=== PATIENT | male | born 1970 | race Hispanic/Latino ===

== ENCOUNTER 2018-01-21 16:55 | Emergency (ER) | payer BC ==
[2018-01-21 17:10] LABS: APPEARANCE,URINE Clear (CLEAR); BILIRUBIN,URINE Negative (NEGATIVE); COLOR,URINE Yellow (YELLOW); GLUCOSE, URINE (UA) >=1000 mg/dL (NEGATIVE); KETONES,URINE Negative (NEGATIVE); LEUKOCYTE ESTERASE ,URINE Negative (NEGATIVE); NITRATE,URINE Negative (NEGATIVE); OCCULT BLOOD,URINE Moderate (NEGATIVE); PH,URINE 6.5 (5.0-8.0); PROTEIN,URINE >=1000 (NEGATIVE); UROBILINOGEN,URINE 0.2 mg/dL (0.2-1.0)
[2018-01-21] MEDS ORDERED: SODIUM CHLORIDE 0.9% 1000ML 1,000 ML IV ONE (17:12)
[2018-01-21] MEDS ORDERED: INSULIN HUMULIN R 100 UNIT/ML 3ML ONE (17:13)
[2018-01-21 17:24] LABS: BASOPHILS % (AUTO) 1.2 % (0.0-5.0); EOSINOPHILS % (AUTO) 1.4 % (0.0-8.0); HEMATOCRIT 38.7 % (42-54); LYMPHOCYTES % (AUTO) 18.9 % (21.0-51.0); MEAN CORPUSCULAR HEMOGLOBIN 29.8 pg (27.0-33.0); MEAN CORPUSCULAR HGB CONC 35.7 g/dL (32.0-36.0); MEAN CORPUSCULAR VOLUME 83.4 fL (79-99); MONOCYTES % (AUTO) 7.6 % (3.0-13.0); NEUTROPHILS % (AUTO) 70.9 % (40.0-77.0); PLATELET COUNT (AUTO) 372 K/uL (130-400); RED BLOOD CELL COUNT(AUTO) 4.64 MIL/uL (4.50-6.20); WHITE BLOOD COUNT (AUTO) 11.2 K/uL (4.8-10.8)
[2018-01-21 17:32] LABS: BACTERIA,URINE Few /HPF (None Seen); YEAST,URINE BUDDING Rare /HPF (None Seen)
[2018-01-21 17:33] LABS: SQUAMOUS EPITHELIAL CELL,UR Few /HPF (0-2)
[2018-01-21 17:44] LABS: ALBUMIN 2.1 g/dL (3.5-5.0); BILIRUBIN,TOTAL 0.2 mg/dL (0.2-1.0); TOTAL PROTEIN, SERUM 6.7 g/dL (6.0-8.3)
[2018-01-21 17:54] LABS: POTASSIUM 4.1 mmol/L (3.5-5.1)
== END 2018-01-21 18:55 | disposition home or self-care (01) ==
LOC: EDH 16:55
DX: E11.22 Type 2 diabetes mellitus with diabetic chronic kidney disease (principal); N18.9 Chronic kidney disease, unspecified; E11.65 Type 2 diabetes mellitus with hyperglycemia; Z98.890 Other specified postprocedural states
CPT/HCPCS: 36415; 80053; 81001; 82948; 85025; 96361; 96374; 99284; J1815; J7030

== ENCOUNTER 2018-03-22 19:19 | Inpatient (IN) | payer BC ==
[~2018-03-22] VITALS: Ht 172.7 cm; Wt 82.1 kg
[2018-03-22 19:53] LABS: BASOPHILS % (AUTO) 0.7 % (0.0-5.0); EOSINOPHILS % (AUTO) 0.7 % (0.0-8.0); HEMATOCRIT 42.7 % (42-54); LYMPHOCYTES % (AUTO) 17.3 % (21.0-51.0); MEAN CORPUSCULAR HEMOGLOBIN 27.7 pg (27.0-33.0); MEAN CORPUSCULAR HGB CONC 32.6 g/dL (32.0-36.0); MEAN CORPUSCULAR VOLUME 85.2 fL (79-99); MONOCYTES % (AUTO) 6.2 % (3.0-13.0); NEUTROPHILS % (AUTO) 75.1 % (40.0-77.0); PLATELET COUNT (AUTO) 381 K/uL (130-400); RED BLOOD CELL COUNT(AUTO) 5.01 MIL/uL (4.50-6.20); RED CELL DISTRIBUTION WIDTH 12.8 % (11.0-15.5); WHITE BLOOD COUNT (AUTO) 11.3 K/uL (4.8-10.8)
[2018-03-22 20:02] LABS: CREATININE 1.8 mg/dL (0.5-1.5); POTASSIUM 4.5 mmol/L (3.5-5.1)
[2018-03-22 20:06] LABS: BILIRUBIN,TOTAL 0.3 mg/dL (0.2-1.0); TOTAL PROTEIN, SERUM 6.7 g/dL (6.0-8.3)
[2018-03-22] MEDS ORDERED: ONDANSETRON HCL 4 MG/2 ML VIAL ONE (20:31)
[2018-03-22] MEDS ORDERED: MORPHINE SULFATE 2 MG/ML 1ML SYG ONE (20:58)
[2018-03-22] MEDS ORDERED: FAMOTIDINE/PF 20 MG/2 ML VIAL IV ONE (20:58)
[2018-03-22] MEDS ORDERED: CLONIDINE HCL 0.1 MG TABLET ONE (21:10)
[2018-03-22 21:19] LABS: APPEARANCE,URINE Clear (CLEAR); BILIRUBIN,URINE Negative (NEGATIVE); COLOR,URINE Yellow (YELLOW); GLUCOSE, URINE (UA) 500 mg/dL (NEGATIVE); KETONES,URINE Negative (NEGATIVE); LEUKOCYTE ESTERASE ,URINE Negative (NEGATIVE); NITRATE,URINE Negative (NEGATIVE); OCCULT BLOOD,URINE Small (NEGATIVE); PH,URINE 6.5 (5.0-8.0); PROTEIN,URINE >=1000 (NEGATIVE)
[2018-03-22 21:31] LABS: BACTERIA,URINE None Seen /HPF (None Seen); SQUAMOUS EPITHELIAL CELL,UR None Seen /HPF (0-2); WBC,URINE None Seen /HPF (0-1)
[2018-03-22 21:39] LABS: AMYLASE 52 U/L (25-115); LIPASE 151 U/L (114-286)
[2018-03-22 21:46] LABS: OCCULT BLOOD,GASTRIC FLUID POSITIVE (NEGATIVE)
[2018-03-22 23:17] VITALS: BP 117/76
[2018-03-22] MEDS ORDERED: INSU100I24 SQ (23:37)
[2018-03-22] MEDS ORDERED: METF-446 PO (23:37)
[2018-03-22] MEDS ORDERED: LISI10TA7 PO (23:37)
[2018-03-23] VITALS (20 sets, daily range): BP systolic 111–184; BP diastolic 68–104
[2018-03-23] MEDS ORDERED: LACTATED RINGERS 1000ML 1,000 ML IV ONE (01:06)
[2018-03-23] MEDS: LACTATED RINGERS 1000ML 1,000 ML IV SCH ×5 (03:15→21:40)
[2018-03-23] MEDS ORDERED: ONDANSETRON HCL MDV 20ML 2 MG/ML VIAL IVP PRN (03:15)
[2018-03-23 03:51] LABS: BASOPHILS % (AUTO) 1.5 % (0.0-5.0); EOSINOPHILS % (AUTO) 0.8 % (0.0-8.0); HEMATOCRIT 36.4 % (42-54); LYMPHOCYTES % (AUTO) 24.7 % (21.0-51.0); MEAN CORPUSCULAR HEMOGLOBIN 29.6 pg (27.0-33.0); MEAN CORPUSCULAR HGB CONC 34.9 g/dL (32.0-36.0); MEAN CORPUSCULAR VOLUME 84.8 fL (79-99); MONOCYTES % (AUTO) 8.6 % (3.0-13.0); NEUTROPHILS % (AUTO) 64.4 % (40.0-77.0); PLATELET COUNT (AUTO) 335 K/uL (130-400); RED BLOOD CELL COUNT(AUTO) 4.29 MIL/uL (4.50-6.20); RED CELL DISTRIBUTION WIDTH 13.2 % (11.0-15.5)
[2018-03-23 04:03] LABS: INR 0.94 (0.85-1.15); PARTIAL THROMBOPLASTIN TIME 32.1 SEC (26.3-35.5); PROTHROMBIN TIME 9.9 SEC (9.6-11.6)
[2018-03-23 04:19] LABS: ALBUMIN 1.5 g/dL (3.5-5.0); BILIRUBIN,TOTAL 0.3 mg/dL (0.2-1.0); CREATININE 1.9 mg/dL (0.5-1.5); POTASSIUM 4.2 mmol/L (3.5-5.1); TOTAL PROTEIN, SERUM 5.3 g/dL (6.0-8.3)
[2018-03-23] MEDS ORDERED: GLUCAGON 1MG KIT 1 MG ML IM PRN (07:00)
[2018-03-23] MEDS ORDERED: DEXTROSE 50%-WATER 50 ML DISP.SYRIN IV PRN (07:00)
[2018-03-23] MEDS: INSULIN HUMULIN R 100 UNIT/ML 3ML SQ SCH ×4 (07:30→21:00)
[2018-03-23] MEDS: INSULIN GLARGINE 100 UNITS/ML 10 ML VIAL SQ SCH (08:00)
[2018-03-23] MEDS: PANTOPRAZOLE 40 MG/VIAL IVP SCH (10:04)
[2018-03-23] MEDS ORDERED: PROPOFOL 10 MG/ML 20ML VIAL IV ONE ×2 (10:54→10:56)
[2018-03-23] MEDS: CLONIDINE HCL 0.1 MG TABLET PO PRN ×2 (15:31→23:52)
[2018-03-23] MEDS ORDERED: LISINOPRIL 10 MG TABLET PO SCH (21:00)
[2018-03-24 03:00] VITALS: BP 176/96
[2018-03-24] MEDS: CLONIDINE HCL 0.1 MG TABLET PO PRN (06:21)
[2018-03-24] MEDS: LACTATED RINGERS 1000ML 1,000 ML IV SCH (06:21)
[2018-03-24] MEDS: INSULIN HUMULIN R 100 UNIT/ML 3ML SQ SCH (06:22)
[2018-03-24 08:00] VITALS: BP 167/103
[2018-03-24] MEDS: INSULIN GLARGINE 100 UNITS/ML 10 ML VIAL SQ SCH (08:00)
[2018-03-24] MEDS ORDERED: ESOM40CA PO (10:04)
[2018-03-24] MEDS: PANTOPRAZOLE 40 MG/VIAL IVP SCH (10:31)
[2018-03-24 12:08] VITALS: BP 159/88
== END 2018-03-24 18:00 | disposition home or self-care (01) | DRG 369 ==
LOC: EDH 19:19 → EDHIP 22:16 → 3AH 23:25
PROVIDERS: ADMIT Hospitalist; ATTEND Hospitalist
PROC: 0DB68ZX Excision of Stomach, Via Natural or Artificial Opening Endoscopic, Diagnostic (ICD-10-PCS; principal; 2018-03-23)
DX: K22.6 Gastro-esophageal laceration-hemorrhage syndrome (principal); E44.1 Mild protein-calorie malnutrition; K29.71 Gastritis, unspecified, with bleeding; I10 Essential (primary) hypertension; K92.1 Melena; E11.9 Type 2 diabetes mellitus without complications; Z79.4 Long term (current) use of insulin; Z28.21 Immunization not carried out because of patient refusal; Z68.27 Body mass index [BMI] 27.0-27.9, adult
CPT/HCPCS: 36415; 80053; 81001; 82150; 82270; 82271; 82948; 83690; 84484; 85025; 85610; 85730; 86850; 86900; 86901; 88305; 93005; C9113; J2405; J2704; J3490; J7120

== ENCOUNTER 2018-09-04 08:42 | Inpatient (IN) | payer OTHER, BC | END 2018-09-18 13:35 | disposition home or self-care (01) | LOC: EDH 08:42 → 2AH 09-10 19:27 → 4CH 09-15 17:57 → EDHIP 08:43 | PROC: 02HV33Z Insertion of Infusion Device into Superior Vena Cava, Percutaneous Approach (ICD-10-PCS; principal; 2018-09-14 12:16) | PROC: 03180ZD Bypass Left Brachial Artery to Upper Arm Vein, Open Approach (ICD-10-PCS; 2018-09-14 12:16) | DX: I13.2 Hypertensive heart and chronic kidney disease with heart failure and with stage 5 chronic kidney disease, or end stage renal disease (principal); I50.43 Acute on chronic combined systolic (congestive) and diastolic (congestive) heart failure; N18.6 End stage renal disease; E44.0 Moderate protein-calorie malnutrition; N17.9 Acute kidney failure, unspecified; N04.9 Nephrotic syndrome with unspecified morphologic changes; E87.70 Fluid overload, unspecified; R07.89 Other chest pain; I12.9 Hypertensive chronic kidney disease with stage 1 through stage 4 chronic kidney disease, or unspecified chronic kidney disease; E11.51 Type 2 diabetes mellitus with diabetic peripheral angiopathy without gangrene; E11.22 Type 2 diabetes mellitus with diabetic chronic kidney disease; E11.21 Type 2 diabetes mellitus with diabetic nephropathy ==

== ENCOUNTER 2018-12-10 06:30 | Emergency (ER) | payer OTHER ==
[~2018-12-10 06:30] MED LIST: FURO-152 PO; INSU100I24 SQ; LOSA50TA64 PO
[2018-12-10 07:42] LABS: BASOPHILS % (AUTO) 0.8 % (0.0-5.0); EOSINOPHILS % (AUTO) 2.8 % (0.0-8.0); HEMATOCRIT 34.8 % (42-54); LYMPHOCYTES % (AUTO) 16.6 % (21.0-51.0); MEAN CORPUSCULAR HEMOGLOBIN 28.5 pg (27.0-33.0); MEAN CORPUSCULAR HGB CONC 33.3 g/dL (32.0-36.0); MEAN CORPUSCULAR VOLUME 85.7 fL (79-99); MONOCYTES % (AUTO) 11.3 % (3.0-13.0); NEUTROPHILS % (AUTO) 68.5 % (40.0-77.0); PLATELET COUNT (AUTO) 271 K/uL (130-400); RED BLOOD CELL COUNT(AUTO) 4.06 MIL/uL (4.50-6.20); RED CELL DISTRIBUTION WIDTH 15.6 % (11.0-15.5); WHITE BLOOD COUNT (AUTO) 7.8 K/uL (4.8-10.8)
[2018-12-10 07:52] LABS: CREATININE 4.3 mg/dL (0.5-1.5); POTASSIUM 4.5 mmol/L (3.5-5.1)
[2018-12-10 07:55] LABS: INR 0.98 (0.85-1.15); PROTHROMBIN TIME 10.3 SEC (9.6-11.6)
[2018-12-10] MEDS ORDERED: LIDOCAINE HCL 1% MDV 50ML VIAL ONE (08:25)
--- NOTE | 2018-12-10 09:19 | NUR ---
Patient prepped at bedside for Right permacath removal done by Dr Alvarez. Time out performed prior to start of procedure. Lidocaine 1% to catheter site. Permacath removed entirely. Patient tolerated well. Manual pressure held to site x 10 min. 4x4 and opsite dressing applied. No bleeding or hematoma noted. CXR performed. HOB elevated >45 degrees. No complaints from patient. Report given to primary nurse.
== END 2018-12-10 10:06 | disposition home or self-care (01) ==
LOC: EDH 06:30
DX: Z45.2 Encounter for adjustment and management of vascular access device (principal); I12.0 Hypertensive chronic kidney disease with stage 5 chronic kidney disease or end stage renal disease; E11.22 Type 2 diabetes mellitus with diabetic chronic kidney disease; N18.6 End stage renal disease; Z99.2 Dependence on renal dialysis
CPT/HCPCS: 36415; 36589; 71045; 80048; 85025; 85610; 85730; 99285; J3490

== ENCOUNTER 2019-01-03 20:10 | Emergency (ER) | payer MEDICARE, OTHER ==
[2019-01-03 21:14] LABS: APPEARANCE,URINE Clear (CLEAR); BILIRUBIN,URINE Negative (NEGATIVE); COLOR,URINE Yellow (YELLOW); GLUCOSE, URINE (UA) 500 mg/dL (NEGATIVE); KETONES,URINE Trace mg/dL (NEGATIVE); LEUKOCYTE ESTERASE ,URINE Negative (NEGATIVE); NITRATE,URINE Negative (NEGATIVE); OCCULT BLOOD,URINE Moderate (NEGATIVE); PH,URINE 7.5 (5.0-8.0); PROTEIN,URINE >=1000 mg/dL (NEGATIVE)
[2019-01-03] MEDS ORDERED: KETOROLAC TROMETHAMINE 30MG/ML ONE (21:26)
[2019-01-03] MEDS ORDERED: ONDANSETRON HCL 4 MG/2 ML VIAL ONE ×2 (21:26→22:02)
[2019-01-03 21:30] LABS: BASOPHILS % (AUTO) 0.5 % (0.0-5.0); EOSINOPHILS % (AUTO) 0.1 % (0.0-8.0); HEMATOCRIT 37.5 % (42-54); LYMPHOCYTES % (AUTO) 9.3 % (21.0-51.0); MEAN CORPUSCULAR HEMOGLOBIN 27.4 pg (27.0-33.0); MEAN CORPUSCULAR HGB CONC 32.6 g/dL (32.0-36.0); MONOCYTES % (AUTO) 4.3 % (3.0-13.0); NEUTROPHILS % (AUTO) 85.8 % (40.0-77.0); PLATELET COUNT (AUTO) 339 K/uL (130-400); RED BLOOD CELL COUNT(AUTO) 4.46 MIL/uL (4.50-6.20); RED CELL DISTRIBUTION WIDTH 14.3 % (11.0-15.5); WHITE BLOOD COUNT (AUTO) 12.1 K/uL (4.8-10.8)
[2019-01-03 21:41] LABS: CREATININE 5.3 mg/dL (0.5-1.5); POTASSIUM 4.8 mmol/L (3.5-5.1)
[2019-01-03 21:43] LABS: BACTERIA,URINE Rare /HPF (None Seen); WBC,URINE 0-1 /HPF (0-1)
[2019-01-03 21:44] LABS: SQUAMOUS EPITHELIAL CELL,UR Rare /HPF (0-2)
[2019-01-03 21:50] LABS: ALBUMIN 2.9 g/dL (3.5-5.0); BILIRUBIN,TOTAL 0.8 mg/dL (0.2-1.0); TOTAL PROTEIN, SERUM 8.2 g/dL (6.0-8.3)
[2019-01-03] MEDS ORDERED: SODIUM CHLORIDE 0.9% 500ML 500 ML IV ONE (22:35)
[2019-01-03] MEDS ORDERED: MORPHINE SULFATE 4 MG/1ML SYG ONE (22:35)
[2019-01-03] MEDS ORDERED: PROMETHAZINE HCL 25 MG/ML 1ML AMPULE IM ONE (22:44)
== END 2019-01-04 00:11 | disposition home or self-care (01) ==
LOC: EDH 20:10
DX: K80.80 Other cholelithiasis without obstruction (principal); I12.0 Hypertensive chronic kidney disease with stage 5 chronic kidney disease or end stage renal disease; E11.22 Type 2 diabetes mellitus with diabetic chronic kidney disease; N18.6 End stage renal disease; Z99.2 Dependence on renal dialysis
CPT/HCPCS: 36415; 71045; 74176; 76705; 80053; 81001; 82948; 83690; 84484; 85025; 96372; 96374; 96375; 96376; 99285; J1885; J2270; J2405 ×2; J2550; J7040

== ENCOUNTER 2019-02-18 06:26 | Day surgery (SDC) | payer MEDICARE ==
[2019-02-15 11:35] VITALS: BP 153/80
[2019-02-15 11:36] LABS: BASOPHILS % (AUTO) 0.5 % (0.0-5.0); EOSINOPHILS % (AUTO) 2.2 % (0.0-8.0); HEMATOCRIT 38.3 % (42-54); MEAN CORPUSCULAR HEMOGLOBIN 28.7 pg (27.0-33.0); MEAN CORPUSCULAR HGB CONC 32.9 g/dL (32.0-36.0); MEAN CORPUSCULAR VOLUME 87.3 fL (79-99); MONOCYTES % (AUTO) 8.9 % (3.0-13.0); NEUTROPHILS % (AUTO) 79.4 % (40.0-77.0); PLATELET COUNT (AUTO) 301 K/uL (130-400); RED BLOOD CELL COUNT(AUTO) 4.39 MIL/uL (4.50-6.20); RED CELL DISTRIBUTION WIDTH 15.4 % (11.0-15.5); WHITE BLOOD COUNT (AUTO) 11.1 K/uL (4.8-10.8)
[2019-02-15 11:48] LABS: INR 0.99 (0.85-1.15); PROTHROMBIN TIME 10.4 SEC (9.6-11.6)
[2019-02-15 11:56] LABS: ALBUMIN 2.8 g/dL (3.5-5.0); BILIRUBIN,DIRECT 0.4 mg/dL (0.0-0.3); BILIRUBIN,TOTAL 1.3 mg/dL (0.2-1.0); CREATININE 3.4 mg/dL (0.5-1.5); POTASSIUM 4.5 mmol/L (3.5-5.1); TOTAL PROTEIN, SERUM 7.9 g/dL (6.0-8.3)
--- NOTE | 2019-02-17 13:48 | NUR ---
labs paged Dr. Thomas to notify him of abnormal labs. waiting for call back
--- NOTE | 2019-02-17 13:52 | NUR ---
labs received call back from Dr. Thomas all abnormal labs reported to him, no further orders given, ok to proceed with planned sx
[2019-02-18] VITALS (18 sets, daily range): BP systolic 126–172; BP diastolic 71–93
[~2019-02-18] VITALS: Ht 170.2 cm; Wt 78.6 kg
[~2019-02-18 06:26] MED LIST changes: -FURO-152 PO; -INSU100I24 SQ; +LOSA100T58 PO; -LOSA50TA64 PO; +PANT40TA25 PO
--- NOTE | 2019-02-18 06:50 | NUR ---
POTENTIAL FOR INFECTION: ABDOMEN SHAVED PER ROSS MCMAHAN.
[2019-02-18] MEDS ORDERED: SODIUM CHLORIDE 0.9% 1000ML 1,000 ML IV ONE (07:10)
[2019-02-18] MEDS ORDERED: CITRIC ACID/SODIUM CITRATE 30 ML UDCUP ONE (07:27)
[2019-02-18] MEDS ORDERED: DEXAMETHASONE SOD PHOSPHATE 10MG/ML 1ML VIAL ONE (07:30)
[2019-02-18] MEDS ORDERED: SUCCINYLCHOLINE 200MG/10ML SYR ONE (07:30)
[2019-02-18] MEDS ORDERED: LIDOCAINE PF 2% 5ML ABBOJECT ONE (07:30)
[2019-02-18] MEDS ORDERED: ONDANSETRON HCL 4 MG/2 ML VIAL ONE (07:31)
[2019-02-18] MEDS ORDERED: ROCURONIUM 10MG/1ML SYR 10 MG/ML ML ONE (07:31)
[2019-02-18] MEDS ORDERED: GLYCOPYRROLATE 1 MG/5 ML SYRINGE ONE (07:31)
[2019-02-18] MEDS ORDERED: PROPOFOL 10 MG/ML 20ML VIAL IV ONE (07:31)
[2019-02-18] MEDS ORDERED: MIDAZOLAM HCL 1 MG/ML 2ML VIAL ONE (07:31)
[2019-02-18] MEDS ORDERED: NEOSTIGMINE 5MG/5ML SYR IV ONE (07:31)
[2019-02-18] MEDS ORDERED: FENTANYL CITRATE PF 50 MCG/1 ML 2ML VIAL ONE (07:32)
[2019-02-18] MEDS ORDERED: HEPARIN SODIUM 1000UNIT/ML 10ML VIAL ONE (07:45)
[2019-02-18] MEDS ORDERED: CITRIC ACID/SODIUM CITRATE 30 ML UDCUP PO ONE (08:00)
[2019-02-18] MEDS ORDERED: SCOPOLAMINE HYDROBROMIDE 1 EACH ADH..PATCH TD ONE (08:00)
[2019-02-18] MEDS ORDERED: SODIUM CHLORIDE 0.9% 1000ML 1,000 ML IV SCH (08:00)
[2019-02-18] MEDS ORDERED: LACTATED RINGERS 1000ML 1,000 ML IV SCH (08:00)
[2019-02-18] MEDS ORDERED: IPRATROPIUM/ALBUTEROL SULFATE 3 ML SOLUTION IH PRN (08:00)
[2019-02-18] MEDS ORDERED: FAMOTIDINE/PF 20 MG/2 ML VIAL IV ONE (08:00)
[2019-02-18] MEDS ORDERED: KETOROLAC TROMETHAMINE 30MG/ML IVP PRN (08:00)
[2019-02-18] MEDS ORDERED: METOCLOPRAMIDE 10 MG/2 ML VIAL IVP PRN (08:00)
[2019-02-18] MEDS ORDERED: MEPERIDINE-PF 50 MG/ML SYG IVP PRN (08:00)
[2019-02-18] MEDS ORDERED: MORPHINE SULFATE 5 MG/ML VIAL IVP PRN (08:00)
[2019-02-18] MEDS ORDERED: ONDANSETRON HCL 4 MG/2 ML VIAL IVP PRN (08:00)
[2019-02-18] MEDS ORDERED: MEPERIDINE-PF 25 MG/ML SYG ONE ×2 (08:50→09:00)
--- NOTE | 2019-02-18 09:30 | NUR ---
RECEIVE PT RECEIVED FROM PACU AWAKE, ORIENTED, BUT SLEEPY. STABLE. NOT IN ANY APPARENT DISTRESS. STATES HE ONLY HAS A LITTLE PAIN TO INCISION SITES, SCALE OF 3. ABDOMEN SOFT, BAND AID DRESSINGS X4 DRY AND INTACT, NO OOZING OR BLEEDING NOTED. CALL SANTILLAN WITHIN REACH, WILL CALL FOR TO COME IN TO ROOM.
--- NOTE | 2019-02-18 10:15 | NUR ---
DISCHARGE PT DISCHARGED VIA WHEELCHAIR WITH . FULLY AWAKE AND ALERT. PT STABLE. STATES HE FEELS BETTER. ABDOMEN REMAINS SOFT, BAND AID DRESSINGS DRY AND INTACT, NO OOZING NO BLEEDING NOTED. TOLERATED ORAL FLUIDS WELL. DISCHARGE INSTRUCTIONS GIVEN TO . VERBALIZED UNDERSTANDING.
== END 2019-02-18 10:15 | disposition home or self-care (01) ==
LOC: DAH 06:26
PROVIDERS: ATTEND Surgery
DX: K80.10 Calculus of gallbladder with chronic cholecystitis without obstruction (principal); I12.0 Hypertensive chronic kidney disease with stage 5 chronic kidney disease or end stage renal disease; E11.22 Type 2 diabetes mellitus with diabetic chronic kidney disease; N18.6 End stage renal disease; K21.9 Gastro-esophageal reflux disease without esophagitis; Z99.2 Dependence on renal dialysis; E78.5 Hyperlipidemia, unspecified; E66.9 Obesity, unspecified; Z79.4 Long term (current) use of insulin; Z88.8 Allergy status to other drugs, medicaments and biological substances; Z98.890 Other specified postprocedural states; Z79.899 Other long term (current) drug therapy; Z83.3 Family history of diabetes mellitus
CPT/HCPCS: 36415; 47562; 80048; 80076; 82948; 85025; 85610; 88304; A4450; A4600; A4930 ×2; C1769 ×4; J0330; J1100; J1644; J2001; J2175 ×2; J2250; J2405; J2704; J2710; J3010; J3490; J7030 ×2; J7120

== ENCOUNTER 2019-05-14 05:56 | Inpatient (IN) | payer MEDICARE ==
[~2019-05-14] VITALS: Ht 172.7 cm; Wt 76.4 kg
[2019-05-14 06:27] LABS: BASOPHILS % (AUTO) 1.1 % (0.0-5.0); EOSINOPHILS % (AUTO) 0.8 % (0.0-8.0); HEMATOCRIT 38.2 % (42-54); LYMPHOCYTES % (AUTO) 16.2 % (21.0-51.0); MEAN CORPUSCULAR HGB CONC 34.5 g/dL (32.0-36.0); MEAN CORPUSCULAR VOLUME 86.9 fL (79-99); MONOCYTES % (AUTO) 8.2 % (3.0-13.0); NEUTROPHILS % (AUTO) 73.7 % (40.0-77.0); NUCLEATED RED BLOOD CELLS 0.1 % (0.0-0.19); PLATELET COUNT (AUTO) 318 K/uL (130-400); RED CELL DISTRIBUTION WIDTH 13.7 % (11.0-15.5); WHITE BLOOD COUNT (AUTO) 9.9 K/uL (4.8-10.8)
[2019-05-14 06:38] LABS: CREATININE 6.7 mg/dL (0.5-1.5); POTASSIUM 3.9 mmol/L (3.5-5.1)
[2019-05-14 06:43] LABS: ALBUMIN 3.2 g/dL (3.5-5.0); BILIRUBIN,TOTAL 0.7 mg/dL (0.2-1.0); TOTAL PROTEIN, SERUM 8.2 g/dL (6.0-8.3)
[2019-05-14 06:43] LABS: APPEARANCE,URINE Clear (CLEAR); BILIRUBIN,URINE Negative (NEGATIVE); COLOR,URINE Yellow (YELLOW); GLUCOSE, URINE (UA) 500 mg/dL (NEGATIVE); KETONES,URINE Negative (NEGATIVE); LEUKOCYTE ESTERASE ,URINE Negative (NEGATIVE); NITRATE,URINE Negative (NEGATIVE); OCCULT BLOOD,URINE Moderate (NEGATIVE); PH,URINE 7.5 (5.0-8.0); PROTEIN,URINE >=1000 mg/dL (NEGATIVE); UROBILINOGEN,URINE 0.2 mg/dL (0.2-1.0)
[2019-05-14] MEDS ORDERED: MORPHINE SULFATE 4 MG/1ML SYG ONE (07:36)
[2019-05-14 07:59] LABS: BACTERIA,URINE Few /HPF (None Seen)
[2019-05-14] MEDS ORDERED: HYDROMORPHONE 1 MG/1 ML AMP ONE ×2 (08:59→13:25)
[2019-05-14] MEDS ORDERED: LIDOCAINE HCL 2% VISCOUS 30 ML, MAG HYDROX/AL HYDROX/SIMETH 30 ML, BELLADONNA-PHENOBARB... PO PRN ×3 (11:15)
[2019-05-14] MEDS ORDERED: ACETAMINOPHEN 325 MG TAB PO PRN ×2 (11:15)
[2019-05-14] MEDS ORDERED: VISCOUS PO PRN ×3 (11:30)
[2019-05-14] MEDS ORDERED: MAG HYDROX PO PRN ×3 (11:30)
[2019-05-14] MEDS ORDERED: SIMETH PO PRN ×3 (11:30)
[2019-05-14] MEDS ORDERED: LIDOCAINE HCL 2% PO PRN ×3 (11:30)
[2019-05-14] MEDS ORDERED: AL HYDROX PO PRN ×3 (11:30)
[2019-05-14] MEDS ORDERED: PROCHLORPERAZINE EDISYLATE 10 MG/2 ML VIAL IV PRN (11:30)
[2019-05-14] MEDS ORDERED: [UNRECOGNIZED DRUG - OTHER] PO PRN ×3 (11:30)
[2019-05-14] MEDS ORDERED: HYDROMORPHONE HCL 2 MG/ML VIAL IVP PRN (12:00)
[2019-05-14] MEDS ORDERED: ONDANSETRON HCL 4 MG/2 ML VIAL ONE (13:25)
[2019-05-14] MEDS ORDERED: SODIUM CHLORIDE 0.9% 100 ML IV ONE (15:52)
[2019-05-14 17:20] VITALS: BP 189/90
[2019-05-14] MEDS ORDERED: AMLO5TAB9 PO (17:37)
[2019-05-14] MEDS: ONDANSETRON HCL 4 MG/2 ML VIAL IV PRN ×2 (17:41→23:50)
[2019-05-14] MEDS: METOCLOPRAMIDE 5 MG TABLET PO SCH ×2 (17:41→21:00)
[2019-05-14] MEDS ORDERED: INSU100I24 SQ (19:52)
[2019-05-14 20:00] VITALS: BP 182/94
[2019-05-14] MEDS: HYDROMORPHONE 1 MG/1 ML AMP IVP PRN (21:58)
[2019-05-15] VITALS: BP 150/78
[2019-05-15] MEDS ORDERED: SODIUM CHLORIDE 0.9% 100 ML IV ONE (00:52)
[2019-05-15] MEDS: PANTOPRAZOLE SODIUM 80 MG in SODIUM CHLORIDE 0.9% 100 ML IV SCH ×4 (01:02→22:00)
[2019-05-15] MEDS: HEPARIN SODIUM 5000UNIT/ML 1ML VIAL SQ SCH ×3 (01:11→20:48)
[2019-05-15] MEDS: HYDROMORPHONE 1 MG/1 ML AMP IVP PRN ×4 (01:57→20:53)
[2019-05-15 04:00] VITALS: BP 149/71
[2019-05-15 05:48] LABS: ALBUMIN 2.7 g/dL (3.5-5.0); BILIRUBIN,DIRECT 0.2 mg/dL (0.0-0.3); BILIRUBIN,TOTAL 0.8 mg/dL (0.2-1.0); TOTAL PROTEIN, SERUM 7.2 g/dL (6.0-8.3)
[2019-05-15] MEDS: METOCLOPRAMIDE 5 MG TABLET PO SCH ×4 (07:30→20:59)
[2019-05-15 08:00] VITALS: BP 180/91
--- NOTE | 2019-05-15 08:00 | NUR ---
AM ASSESSMENT. UNHAPPY WITH CL. LIQUID DIET, WANTS SOLID FOODS.
--- NOTE | 2019-05-15 09:30 | NUR ---
IN TO SEE PT. WILL ENTER ORDERS.
[2019-05-15 12:00] VITALS: BP 178/95
[2019-05-15] MEDS: MORPHINE SULFATE 4 MG/1ML SYG IV PRN (12:12)
[2019-05-15] MEDS: ONDANSETRON HCL 4 MG/2 ML VIAL IV PRN ×2 (13:56→20:52)
[2019-05-15 16:00] VITALS: BP 150/75
--- NOTE | 2019-05-15 16:43 | NUR ---
SPOKE TO [facility] RE:GI CONSULT. DR. PALAFOX BEING FLIGHT TEST SHOP MECHANIC, PT. IS ESTABLISHED WITH DR. ZAMORA AND PREFERS TO SEE HIM,OK TO WAIT AND CONSULT NOAH IN AM. WILL ENDORSE TO INCOMING NURSE.
--- NOTE | 2019-05-15 16:51 | NUR ---
INITIAL: Met w pt and sister this afternoon to discuss dcp. Pt lives w spouse, is independent w ambulation and ADLs. Does not own any DMe. He attends [facility] for his HD needs. Pt mentions that his family provides transportation as he does not drive. Per pt he feels safe and comfortable to return home at al. CM to continue to follow and wait for Md recommendations. Addendum: 05/15/19 at 1653 by NATALIA HUMPHRIES Amended: Links added.
[2019-05-15 20:00] VITALS: BP 152/74
[2019-05-15] MEDS ORDERED: COMPOUND PO MISCELLANEOUS 1 EACH MISC MISC PRN (20:15)
[2019-05-15] MEDS: INSULIN GLARGINE 100 UNITS/ML 10 ML VIAL SQ SCH (20:49)
[2019-05-16] VITALS (7 sets, daily range): BP systolic 131–159; BP diastolic 68–85
[2019-05-16 04:37] LABS: HEMATOCRIT 33.5 % (42-54); MEAN CORPUSCULAR HEMOGLOBIN 29.6 pg (27.0-33.0); MEAN CORPUSCULAR HGB CONC 34.2 g/dL (32.0-36.0); MEAN CORPUSCULAR VOLUME 86.5 fL (79-99); NUCLEATED RED BLOOD CELLS 0.1 % (0.0-0.19); PLATELET COUNT (AUTO) 278 K/uL (130-400); RED BLOOD CELL COUNT(AUTO) 3.87 MIL/uL (4.50-6.20); RED CELL DISTRIBUTION WIDTH 13.5 % (11.0-15.5); WHITE BLOOD COUNT (AUTO) 8.1 K/uL (4.8-10.8)
[2019-05-16 04:45] LABS: BAND NEUTROPHILS % (MANUAL) 2 % (0-2); BASOPHILS % (MANUAL) 1 % (0-2); EOSINOPHILS % (MANUAL) 1 % (1-6); LYMPHOCYTES % (MANUAL) 13 % (22-44); MAN.DIFF COMMENT-IMPRESSION MANUAL DIFFERENTIAL; MONOCYTES % (MANUAL) 9 % (2-9); PLATELET MORPHOLOGY COMMENT ADEQUATE; SEGMENTED NEUTROPHILS % 74 % (40-70)
[2019-05-16 04:50] LABS: PHOSPHORUS 5.3 mg/dL (2.5-4.9); POTASSIUM 3.6 mmol/L (3.5-5.1)
[2019-05-16] MEDS: METOCLOPRAMIDE 5 MG TABLET PO SCH ×4 (06:05→16:28)
[2019-05-16] MEDS: INSULIN GLARGINE 100 UNITS/ML 10 ML VIAL SQ SCH (09:00)
[2019-05-16] MEDS: AMLODIPINE BESYLATE 5 MG TAB PO SCH (09:20)
[2019-05-16] MEDS: HEPARIN SODIUM 5000UNIT/ML 1ML VIAL SQ SCH (09:27)
[2019-05-16] MEDS: PANTOPRAZOLE SODIUM 80 MG in SODIUM CHLORIDE 0.9% 100 ML IV SCH ×2 (10:29→22:53)
[2019-05-16] MEDS: HYDROMORPHONE 1 MG/1 ML AMP IVP PRN ×2 (11:01→18:14)
[2019-05-16] MEDS: METOCLOPRAMIDE 10 MG/2 ML VIAL IVP SCH (21:05)
[2019-05-17] VITALS (16 sets, daily range): BP systolic 143–187; BP diastolic 61–90
[2019-05-17] MEDS: HYDROMORPHONE 1 MG/1 ML AMP IVP PRN (00:15)
[2019-05-17 04:50] LABS: MEAN CORPUSCULAR HEMOGLOBIN 29.8 pg (27.0-33.0); MEAN CORPUSCULAR HGB CONC 34.7 g/dL (32.0-36.0); MEAN CORPUSCULAR VOLUME 85.8 fL (79-99); PLATELET COUNT (AUTO) 286 K/uL (130-400); RED BLOOD CELL COUNT(AUTO) 3.61 MIL/uL (4.50-6.20); RED CELL DISTRIBUTION WIDTH 13.3 % (11.0-15.5); WHITE BLOOD COUNT (AUTO) 12.4 K/uL (4.8-10.8)
[2019-05-17 05:01] LABS: ALBUMIN 2.4 g/dL (3.5-5.0); CREATININE 7.1 mg/dL (0.5-1.5); PHOSPHORUS 5.5 mg/dL (2.5-4.9); POTASSIUM 3.7 mmol/L (3.5-5.1); TOTAL PROTEIN, SERUM 6.6 g/dL (6.0-8.3)
[2019-05-17 05:29] LABS: BASOPHILS % (MANUAL) 1 % (0-2); EOSINOPHILS % (MANUAL) 1 % (1-6); LYMPHOCYTES % (MANUAL) 12 % (22-44); MAN.DIFF COMMENT-IMPRESSION MANUAL DIFFERENTIAL; MONOCYTES % (MANUAL) 9 % (2-9); SEGMENTED NEUTROPHILS % 77 % (40-70)
--- NOTE | 2019-05-17 08:00 | NUR ---
AM SHIFT ASSESSMENT. NPO NOW FOR EGD TODAY. STATES HE IS COMFORTABLE AT THE MOMENT.
[2019-05-17] MEDS: AMLODIPINE BESYLATE 5 MG TAB PO SCH ×2 (09:00→16:06)
[2019-05-17] MEDS: INSULIN GLARGINE 100 UNITS/ML 10 ML VIAL SQ SCH (09:00)
[2019-05-17] MEDS: METOCLOPRAMIDE 10 MG/2 ML VIAL IVP SCH ×2 (09:54→20:41)
--- NOTE | 2019-05-17 09:55 | NUR ---
AM SCHEDULED INSULIN HELD THIS AM. LOW BS OF 68. AND IS ALSO NPO FOR OTHER PROCEDURE.
--- NOTE | 2019-05-17 13:55 | NUR ---
TO GI LAB NOW.
--- NOTE | 2019-05-17 15:37 | NUR ---
STARTED NOW ON HD TX,
[2019-05-17] MEDS: HYDRALAZINE HCL 20 MG/ML VIAL IV PRN (16:07)
--- NOTE | 2019-05-17 16:56 | NUR ---
PT.C/O OF PAIN TORT. FOREARM, RED AND SWOLLEN, TOP FRAME FITTER NOTIFIED AND ORDERS GIVEN AND ENTERED. PT. BEING DIALYZED NOW.
--- NOTE | 2019-05-17 18:37 | NUR ---
WARM COMPRESSES APPLIED TO RT. FOREARM.
--- NOTE | 2019-05-17 18:38 | NUR ---
90TX NOW COMPLETE, NO FLUID REMOVED. TOLERATED WELL, BP 190/90.
[2019-05-17] MEDS: MORPHINE SULFATE 4 MG/1ML SYG IV PRN (23:36)
[2019-05-18] MEDS ORDERED: ENOXAPARIN SODIUM 80 MG/0.8 ML SQ ONE (00:50)
[2019-05-18 03:55] VITALS: BP 169/94
[2019-05-18 05:04] LABS: BASOPHILS % (AUTO) 0.5 % (0.0-5.0); HEMATOCRIT 28.9 % (42-54); LYMPHOCYTES % (AUTO) 17.7 % (21.0-51.0); MEAN CORPUSCULAR HEMOGLOBIN 30.1 pg (27.0-33.0); MEAN CORPUSCULAR HGB CONC 34.7 g/dL (32.0-36.0); MEAN CORPUSCULAR VOLUME 86.9 fL (79-99); MONOCYTES % (AUTO) 14.6 % (3.0-13.0); NEUTROPHILS % (AUTO) 64.2 % (40.0-77.0); PLATELET COUNT (AUTO) 252 K/uL (130-400); RED BLOOD CELL COUNT(AUTO) 3.32 MIL/uL (4.50-6.20); RED CELL DISTRIBUTION WIDTH 13.5 % (11.0-15.5)
[2019-05-18] MEDS: MORPHINE SULFATE 4 MG/1ML SYG IV PRN ×2 (05:14→09:14)
[2019-05-18 05:21] LABS: CREATININE 5.5 mg/dL (0.5-1.5); POTASSIUM 3.6 mmol/L (3.5-5.1)
[2019-05-18 08:00] VITALS: BP 180/90
[2019-05-18] MEDS: INSULIN GLARGINE 100 UNITS/ML 10 ML VIAL SQ SCH (09:00)
[2019-05-18] MEDS ORDERED: ENOXAPARIN SODIUM 80 MG/0.8 ML SQ SCH (09:00)
[2019-05-18] MEDS: PANTOPRAZOLE SODIUM 80 MG in SODIUM CHLORIDE 0.9% 100 ML IV SCH (09:00)
[2019-05-18] MEDS: METOCLOPRAMIDE 10 MG/2 ML VIAL IVP SCH (09:12)
--- NOTE | 2019-05-18 10:50 | NUR ---
REC'D ORDERS FOR CARDIOVASCULAR CONSULT DUE TO RIGHT IJ THROMBUS; SCHEDULE READS DR HUMPHREY PHOTO MACHINE OPERATOR. SPOKE TO DR HUMPHREY, WHO STATED DR MENDOSA IS PHOTO MACHINE OPERATOR IN [facility] TODAY. NOTIFIED VIBHA, DR. MENDOSA'S NURSE, OF CONSULT. VIBHA ACKNOWLEDGED RECEIPT OF CONSULT.
--- NOTE | 2019-05-18 10:57 | NUR ---
CHART REVIEWED NOTE MADE OF RIJ THROMBUS. OLD RECORDS REVIEWED, NOTES MADE OF RIJ PERMACATH PLACED EARLIER THIS YEAR. NOTE MADE OF ECHO ON SAME ADMIT -35% EF/ SVC COLLAPSE ON INSPIRATION, READ BY DR. GUTIERREZ. NO OTHER CARDIOLOGY NOTES OR REFERRAL TO [facility] IN PATIENTS MEDICAL RECORD. REFERRAL PENDING TO [facility] FORM DR Malagon TO ASSESS THE THROMCUS
--- NOTE | 2019-05-18 11:45 | NUR ---
DR CRUZ REVIEWED FINDING OF THROMBUS WHEN ROUNDING STATES PROBABLY INCIDENTAL, PT HAD RIJ LINE; CAN DO VENOGRAM TO RULE OUT WILL DEFER TO [facility] RECOMMEND[facility]
[2019-05-18] MEDS: HYDRALAZINE HCL 20 MG/ML VIAL IV PRN (11:48)
[2019-05-18 13:31] VITALS: BP 150/66
[2019-05-18 16:00] VITALS: BP 164/74
--- NOTE | 2019-05-18 18:25 | NUR ---
Rec'd discharge orders from [facility]. Reviewed Dr. Tong's dictation which stated "consider repeat ultrasound in 1 month", and "if arm or facial swelling, consider anticoagulation." Per primary nurse, no swelling at present. [facility] voiced no need for anticoagulation at this time, but to instruct pt to follow up with PCP for repeat ultrasound.
--- NOTE | 2019-05-18 19:44 | NUR ---
PATIENT DISCHARGE PATIENT DISCHARGED, IV DISCONTINUED, CATHLON INTACT, BLEEDING CONTROLLED, PATIENT TOLERATED WITHOUT INCIDENT.
== END 2019-05-18 19:55 | disposition home or self-care (01) | DRG 368 ==
LOC: EDH 05:56 → OBSVTOIN 11:14 → EDHIP 11:14 → 3BH 17:20
PROVIDERS: ADMIT Family Medicine; ATTEND Family Medicine
PROC: 5A1D70Z Performance of Urinary Filtration, Intermittent, Less than 6 Hours Per Day (ICD-10-PCS; 2019-05-14)
PROC: 0DB98ZX Excision of Duodenum, Via Natural or Artificial Opening Endoscopic, Diagnostic (ICD-10-PCS; principal; 2019-05-17)
PROC: 0DB68ZX Excision of Stomach, Via Natural or Artificial Opening Endoscopic, Diagnostic (ICD-10-PCS; 2019-05-17)
PROC: 0DB38ZX Excision of Lower Esophagus, Via Natural or Artificial Opening Endoscopic, Diagnostic (ICD-10-PCS; 2019-05-17)
PROC: 5A1D70Z Performance of Urinary Filtration, Intermittent, Less than 6 Hours Per Day (ICD-10-PCS; 2019-05-17)
DX: K22.6 Gastro-esophageal laceration-hemorrhage syndrome (principal); N18.6 End stage renal disease; I12.0 Hypertensive chronic kidney disease with stage 5 chronic kidney disease or end stage renal disease; C18.9 Malignant neoplasm of colon, unspecified; I82.C11 Acute embolism and thrombosis of right internal jugular vein; K59.00 Constipation, unspecified; K21.0 Gastro-esophageal reflux disease with esophagitis; F02.80 Dementia in other diseases classified elsewhere, unspecified severity, without behavioral disturbance, psychotic disturbance, mood disturbance, and anxiety; E11.22 Type 2 diabetes mellitus with diabetic chronic kidney disease; G30.9 Alzheimer's disease, unspecified; E11.43 Type 2 diabetes mellitus with diabetic autonomic (poly)neuropathy; K31.84 Gastroparesis; B96.81 Helicobacter pylori [H. pylori] as the cause of diseases classified elsewhere; D64.9 Anemia, unspecified; E11.21 Type 2 diabetes mellitus with diabetic nephropathy; E66.9 Obesity, unspecified; Z68.25 Body mass index [BMI] 25.0-25.9, adult; Z99.2 Dependence on renal dialysis; Z79.01 Long term (current) use of anticoagulants; Z90.49 Acquired absence of other specified parts of digestive tract; K29.00 Acute gastritis without bleeding
CPT/HCPCS: 36415; 43239; 74176; 80048; 80053; 80076; 81001; 82948; 83690; 84100; 84484; 85025; 86677; 88305; 90935; 93005; 93931; 93971; A4606; C9113; G0378; J0360; J0780; J1170; J1644; J1650; J2270; J2405; J2765

== ENCOUNTER 2019-05-24 07:03 | Emergency (ER) | payer MEDICARE ==
[~2019-05-24 07:03] MED LIST changes: +AMLO5TAB9 PO; +INSU100I24 SQ; -LOSA100T58 PO; -PANT40TA25 PO
[2019-05-24] MEDS ORDERED: DiphenhydrAMINE HCL 50 MG/ML VIAL ONE (07:42)
[2019-05-24] MEDS ORDERED: PROCHLORPERAZINE EDISYLATE 10 MG/2 ML VIAL ONE (07:42)
== END 2019-05-24 08:37 | disposition home or self-care (01) ==
LOC: EDH 07:03
DX: R10.30 Lower abdominal pain, unspecified (principal); R11.2 Nausea with vomiting, unspecified; I12.0 Hypertensive chronic kidney disease with stage 5 chronic kidney disease or end stage renal disease; E11.22 Type 2 diabetes mellitus with diabetic chronic kidney disease; N18.6 End stage renal disease; Z99.2 Dependence on renal dialysis; Z79.4 Long term (current) use of insulin; Z90.49 Acquired absence of other specified parts of digestive tract; Z98.890 Other specified postprocedural states
CPT/HCPCS: 96372 ×2; 99284; J0780; J1200

== ENCOUNTER 2019-05-28 11:17 | Emergency (ER) | payer MEDICARE ==
[2019-05-28 11:45] LABS: BASOPHILS % (AUTO) 0.3 % (0.0-5.0); EOSINOPHILS % (AUTO) 1.3 % (0.0-8.0); HEMATOCRIT 35.6 % (42-54); LYMPHOCYTES % (AUTO) 6.5 % (21.0-51.0); MEAN CORPUSCULAR HEMOGLOBIN 28.7 pg (27.0-33.0); MEAN CORPUSCULAR HGB CONC 33.4 g/dL (32.0-36.0); MEAN CORPUSCULAR VOLUME 86.1 fL (79-99); MONOCYTES % (AUTO) 5.2 % (3.0-13.0); NEUTROPHILS % (AUTO) 86.7 % (40.0-77.0); PLATELET COUNT (AUTO) 361 K/uL (130-400); RED BLOOD CELL COUNT(AUTO) 4.14 MIL/uL (4.50-6.20); RED CELL DISTRIBUTION WIDTH 13.1 % (11.0-15.5); WHITE BLOOD COUNT (AUTO) 12.7 K/uL (4.8-10.8)
[2019-05-28 11:57] LABS: CREATININE 5.8 mg/dL (0.5-1.5); POTASSIUM 4.3 mmol/L (3.5-5.1)
[2019-05-28 11:59] LABS: INR 1.01 (0.85-1.15); PROTHROMBIN TIME 10.6 SEC (9.6-11.6)
[2019-05-28 12:02] LABS: BILIRUBIN,TOTAL 0.6 mg/dL (0.2-1.0); TOTAL PROTEIN, SERUM 8.1 g/dL (6.0-8.3)
== END 2019-05-28 15:42 | disposition home or self-care (01) ==
LOC: EDH 11:17
DX: H81.399 Other peripheral vertigo, unspecified ear (principal); K29.70 Gastritis, unspecified, without bleeding; K92.0 Hematemesis; E11.22 Type 2 diabetes mellitus with diabetic chronic kidney disease; I12.0 Hypertensive chronic kidney disease with stage 5 chronic kidney disease or end stage renal disease; N18.6 End stage renal disease; Z99.2 Dependence on renal dialysis; Z79.4 Long term (current) use of insulin; Z90.49 Acquired absence of other specified parts of digestive tract
CPT/HCPCS: 36415; 70450; 80053; 82270; 83690; 85025; 85610; 85730; 86850; 86900; 86901

== ENCOUNTER 2020-01-11 23:51 | Emergency (ER) | payer MEDICARE ==
[~2020-01-11 23:51] MED LIST changes: +AMLO-257 PO; -AMLO5TAB9 PO
[2020-01-11] MEDS ORDERED: PANTOPRAZOLE 40 MG/VIAL IVP ONE (23:52)
[2020-01-11] MEDS ORDERED: PROMETHAZINE HCL 25 MG/ML 1ML AMPULE IM ONE (23:52)
[2020-01-12] MEDS ORDERED: ONDANSETRON HCL 4 MG/2 ML VIAL ONE (00:24)
[2020-01-12] MEDS ORDERED: SODIUM CHLORIDE 0.9% 250 ML IV ONE (00:25)
[2020-01-12] MEDS ORDERED: MORPHINE SULFATE 4 MG/1ML SYG ONE (00:55)
[2020-01-12 01:22] LABS: BASOPHILS % (AUTO) 0.4 % (0.0-5.0); EOSINOPHILS % (AUTO) 1.6 % (0.0-8.0); HEMATOCRIT 37.7 % (42-54); LYMPHOCYTES % (AUTO) 9.5 % (21.0-51.0); MEAN CORPUSCULAR HGB CONC 32.4 g/dL (32.0-36.0); MEAN CORPUSCULAR VOLUME 89.5 fL (79-99); MONOCYTES % (AUTO) 9.2 % (3.0-13.0); NEUTROPHILS % (AUTO) 78.8 % (40.0-77.0); PLATELET COUNT (AUTO) 311 K/uL (130-400); RED BLOOD CELL COUNT(AUTO) 4.21 MIL/uL (4.50-6.20); RED CELL DISTRIBUTION WIDTH 14.8 % (11.0-15.5)
[2020-01-12 01:41] LABS: INR 0.97 (0.85-1.15); PARTIAL THROMBOPLASTIN TIME 30.8 SEC (26.3-35.5); PROTHROMBIN TIME 10.5 SEC (9.6-11.6)
[2020-01-12 01:42] LABS: ALBUMIN 3.8 g/dL (3.5-5.0); BILIRUBIN,DIRECT 0.2 mg/dL (0.0-0.3); BILIRUBIN,TOTAL 0.9 mg/dL (0.2-1.0); POTASSIUM 4.4 mmol/L (3.5-5.1); TOTAL PROTEIN, SERUM 8.6 g/dL (6.0-8.3)
[2020-01-12] MEDS ORDERED: MAG HYDROX/AL HYDROX/SIMETH ES 30 ML SUSP UDCUP ONE (04:31)
[2020-01-12] MEDS ORDERED: LIDOCAINE HCL 2% VISCOUS 15 ML UDCUP ONE (04:31)
[2020-01-12 04:37] LABS: BASOPHILS % (AUTO) 0.4 % (0.0-5.0); EOSINOPHILS % (AUTO) 0.6 % (0.0-8.0); HEMATOCRIT 35.2 % (42-54); LYMPHOCYTES % (AUTO) 7.6 % (21.0-51.0); MEAN CORPUSCULAR HEMOGLOBIN 29.2 pg (27.0-33.0); MEAN CORPUSCULAR HGB CONC 32.7 g/dL (32.0-36.0); MEAN CORPUSCULAR VOLUME 89.3 fL (79-99); MONOCYTES % (AUTO) 8.6 % (3.0-13.0); NEUTROPHILS % (AUTO) 82.5 % (40.0-77.0); PLATELET COUNT (AUTO) 254 K/uL (130-400); RED BLOOD CELL COUNT(AUTO) 3.94 MIL/uL (4.50-6.20); RED CELL DISTRIBUTION WIDTH 14.5 % (11.0-15.5); WHITE BLOOD COUNT (AUTO) 10.8 K/uL (4.8-10.8)
[2020-01-12] MEDS ORDERED: HALOPERIDOL LACTATE 5 MG/ML VIAL ONE (05:33)
== END 2020-01-12 06:12 | disposition home or self-care (01) ==
LOC: EDH 23:51
DX: K29.00 Acute gastritis without bleeding (principal); K92.0 Hematemesis; I12.0 Hypertensive chronic kidney disease with stage 5 chronic kidney disease or end stage renal disease; E11.22 Type 2 diabetes mellitus with diabetic chronic kidney disease; N18.6 End stage renal disease; Z99.2 Dependence on renal dialysis; Z90.49 Acquired absence of other specified parts of digestive tract; Z88.8 Allergy status to other drugs, medicaments and biological substances
CPT/HCPCS: 36415; 74176; 80048; 80076; 82550; 83690; 84484; 85025 ×2; 85610; 85730; 93005; 96374; 96375; 99285; C9113; J1630; J2270; J2405; J2550; J7050

== ENCOUNTER 2020-09-22 16:18 | Inpatient (IN) | payer MEDICARE ==
[~2020-09-22] VITALS: Ht 172.7 cm; Wt 79.7 kg
[2020-09-22] MEDS ORDERED: ONDANSETRON 4MG INJ ONE ×2 (16:40→22:25)
[2020-09-22] MEDS ORDERED: MORPHINE 4 MG SYG ONE (16:41)
[2020-09-22 16:59] LABS: BASOPHILS % (AUTO) 0.6 % (0.0-5.0); EOSINOPHILS % (AUTO) 1.6 % (0.0-8.0); HEMATOCRIT 33.8 % (42-54); LYMPHOCYTES % (AUTO) 5.5 % (21.0-51.0); MEAN CORPUSCULAR HEMOGLOBIN 29.3 pg (27.0-33.0); MEAN CORPUSCULAR HGB CONC 32.5 g/dL (32.0-36.0); MEAN CORPUSCULAR VOLUME 90.1 fL (79-99); MONOCYTES % (AUTO) 13.8 % (3.0-13.0); NEUTROPHILS % (AUTO) 78.3 % (40.0-77.0); PLATELET COUNT (AUTO) 274 K/uL (130-400); RED BLOOD CELL COUNT(AUTO) 3.75 MIL/uL (4.50-6.20); RED CELL DISTRIBUTION WIDTH 16.6 % (11.0-15.5); WHITE BLOOD COUNT (AUTO) 8.7 K/uL (4.8-10.8)
[2020-09-22 17:08] LABS: CREATININE 5.1 mg/dL (0.5-1.5); POTASSIUM 4.4 mmol/L (3.5-5.1)
[2020-09-22 17:09] LABS: INR 1.27 (0.85-1.15); PROTHROMBIN TIME 13.5 SEC (9.6-11.6)
[2020-09-22 17:18] LABS: ALBUMIN 3.2 g/dL (3.5-5.0); BILIRUBIN,TOTAL 1.4 mg/dL (0.2-1.0); TOTAL PROTEIN, SERUM 8.1 g/dL (6.0-8.3)
[2020-09-22 17:24] LABS: B-TYPE NATRIURETIC PEPTIDE 4400 pg/mL (0-100)
[2020-09-22 17:47] LABS: D-DIMER > 10000 ng/mL (0-500)
[2020-09-22] MEDS ORDERED: FENTANYL CITRATE PF 50 MCG/1 ML 2ML VIAL ONE (18:20)
[2020-09-22] MEDS ORDERED: CEFTRIAXONE 1G VIAL ONE (18:22)
[2020-09-22] MEDS ORDERED: ALBUTEROL 0.083% 2.5 MG/3 ML INH IH PRN (19:45)
[2020-09-22] MEDS ORDERED: MAG/ALUM/SIMETH 30 ML UDCUP PO PRN (19:45)
[2020-09-22] MEDS ORDERED: DIPHENHYDRAMINE HCL 25 MG CAPSULE PO PRN (19:45)
[2020-09-22] MEDS ORDERED: NITROGLYCERIN 0.4 MG SL TAB SL PRN (19:45)
[2020-09-22] MEDS ORDERED: GUAIFENESIN-DM 200/20 MG 10 ML PO PRN (19:45)
[2020-09-22] MEDS: CEFTRIAXONE 1G VIAL IV SCH (19:45)
[2020-09-22] MEDS ORDERED: HYDROMORPHONE 1 MG INJ ONE (20:01)
[2020-09-22] MEDS: HEPARIN 5,000 UNIT VIAL SQ SCH (21:00)
[2020-09-22] MEDS ORDERED: FAMOTIDINE 20MG VIAL IV ONE (22:17)
[2020-09-22] MEDS ORDERED: HEPARIN 5,000 UNIT VIAL ONE (22:17)
[2020-09-22] MEDS ORDERED: DiphenhydrAMINE HCL 50 MG/ML VIAL ONE (22:25)
[2020-09-22 23:15] VITALS: BP 145/84
[2020-09-22] MEDS: ONDANSETRON 4MG INJ IV PRN (23:46)
[2020-09-23] MEDS ORDERED: PHOSLOC PO (00:57)
[2020-09-23] MEDS: HYDROMORPHONE 1 MG INJ IVP PRN ×4 (02:40→20:25)
[2020-09-23 04:15] VITALS: BP 130/71
[2020-09-23] MEDS: ONDANSETRON 4MG INJ IV PRN ×2 (06:33→20:24)
[2020-09-23 07:00] VITALS: BP 141/78
[2020-09-23 07:34] LABS: APPEARANCE,URINE Clear (CLEAR); BILIRUBIN,URINE Negative (NEGATIVE); COLOR,URINE Yellow (YELLOW); GLUCOSE, URINE (UA) TRACE mg/dL (NEGATIVE); KETONES,URINE Negative (NEGATIVE); LEUKOCYTE ESTERASE ,URINE Negative (NEGATIVE); NITRATE,URINE Negative (NEGATIVE); OCCULT BLOOD,URINE Trace (NEGATIVE); PH,URINE 8.5 (5.0-8.0); PROTEIN,URINE >=1000 mg/dL (NEGATIVE)
[2020-09-23] MEDS: FAMOTIDINE 20MG VIAL IV SCH (07:51)
[2020-09-23] MEDS: HEPARIN 5,000 UNIT VIAL SQ SCH ×2 (07:53→19:50)
[2020-09-23 08:01] LABS: BACTERIA,URINE Few /HPF (None Seen); RBC,URINE 0-1 /HPF (0-1); WBC,URINE 0-1 /HPF (0-1)
[2020-09-23 08:02] LABS: HYALINE CASTS, URINE 0-1 /LPF (0-1 /LPF)
[2020-09-23 08:19] LABS: BASOPHILS % (AUTO) 0.5 % (0.0-5.0); EOSINOPHILS % (AUTO) 2.1 % (0.0-8.0); LYMPHOCYTES % (AUTO) 4.5 % (21.0-51.0); MEAN CORPUSCULAR HEMOGLOBIN 28.8 pg (27.0-33.0); MEAN CORPUSCULAR HGB CONC 30.6 g/dL (32.0-36.0); MEAN CORPUSCULAR VOLUME 94.2 fL (79-99); MONOCYTES % (AUTO) 15.4 % (3.0-13.0); NEUTROPHILS % (AUTO) 77.1 % (40.0-77.0); PLATELET COUNT (AUTO) 273 K/uL (130-400); RED BLOOD CELL COUNT(AUTO) 3.61 MIL/uL (4.50-6.20); RED CELL DISTRIBUTION WIDTH 16.6 % (11.0-15.5); WHITE BLOOD COUNT (AUTO) 10.6 K/uL (4.8-10.8)
[2020-09-23 08:29] LABS: CREATININE 6.5 mg/dL (0.5-1.5); POTASSIUM 4.7 mmol/L (3.5-5.1)
[2020-09-23] MEDS: AMLODIPINE 5 MG TAB PO SCH (10:03)
[2020-09-23] MEDS: CALCIUM AC 667MG CAP PO SCH (10:57)
[2020-09-23] MEDS: LACTULOSE 20 GM/30 ML UDCUP PO PRN ×2 (11:05→23:03)
[2020-09-23] MEDS: ACETAMINOPHEN 325 MG TAB PO PRN ×2 (11:06→23:03)
[2020-09-23 11:30] VITALS: BP 128/74
[2020-09-23 16:00] VITALS: BP 134/70
[2020-09-23] MEDS: CEFTRIAXONE 1G VIAL IV SCH (19:51)
[2020-09-23 20:00] VITALS: BP 137/73
[2020-09-24] VITALS: BP 136/70
[2020-09-24 04:00] VITALS: BP 148/78
[2020-09-24] MEDS: ACETAMINOPHEN 325 MG TAB PO PRN ×4 (04:23→21:28)
[2020-09-24 05:04] LABS: BASOPHILS % (AUTO) 0.4 % (0.0-5.0); EOSINOPHILS % (AUTO) 1.5 % (0.0-8.0); HEMATOCRIT 34.9 % (42-54); LYMPHOCYTES % (AUTO) 6.3 % (21.0-51.0); MEAN CORPUSCULAR HEMOGLOBIN 29.1 pg (27.0-33.0); MEAN CORPUSCULAR HGB CONC 31.5 g/dL (32.0-36.0); MEAN CORPUSCULAR VOLUME 92.3 fL (79-99); MONOCYTES % (AUTO) 14.4 % (3.0-13.0); NEUTROPHILS % (AUTO) 76.8 % (40.0-77.0); PLATELET COUNT (AUTO) 296 K/uL (130-400); RED BLOOD CELL COUNT(AUTO) 3.78 MIL/uL (4.50-6.20); RED CELL DISTRIBUTION WIDTH 16.2 % (11.0-15.5); WHITE BLOOD COUNT (AUTO) 9.4 K/uL (4.8-10.8)
[2020-09-24 05:17] LABS: PHOSPHORUS 7.7 mg/dL (2.5-4.9); POTASSIUM 5.1 mmol/L (3.5-5.1)
[2020-09-24 05:20] LABS: CREATININE 8.1 mg/dL (0.5-1.5)
[2020-09-24 08:00] VITALS: BP 155/77
[2020-09-24] MEDS: CALCIUM AC 667MG CAP PO SCH ×3 (08:00→16:17)
[2020-09-24] MEDS: HEPARIN 5,000 UNIT VIAL SQ SCH ×2 (08:27→20:21)
[2020-09-24] MEDS: Vitamin B Complex/Vit C/Folic Acid PO SCH (08:31)
[2020-09-24] MEDS: AMLODIPINE 5 MG TAB PO SCH (08:32)
[2020-09-24] MEDS: FAMOTIDINE 20MG VIAL IV SCH (08:36)
[2020-09-24] MEDS: HYDROMORPHONE 1 MG INJ IVP PRN ×2 (09:43→17:13)
[2020-09-24 11:51] VITALS: BP 135/78
[2020-09-24] MEDS: DiphenhydrAMINE HCL 50 MG/ML VIAL IV PRN (12:58)
[2020-09-24 16:00] VITALS: BP 127/66
[2020-09-24 20:00] VITALS: BP 144/76
[2020-09-24] MEDS: CEFTRIAXONE 1G VIAL IV SCH (20:21)
[2020-09-25] VITALS (7 sets, daily range): BP systolic 132–148; BP diastolic 68–84
[2020-09-25] MEDS: HYDROMORPHONE 1 MG INJ IVP PRN ×3 (01:06→16:30)
[2020-09-25] MEDS: ACETAMINOPHEN 325 MG TAB PO PRN ×4 (04:17→21:11)
[2020-09-25 05:22] LABS: HEMATOCRIT 31.8 % (42-54); MEAN CORPUSCULAR HEMOGLOBIN 29.2 pg (27.0-33.0); MEAN CORPUSCULAR HGB CONC 32.1 g/dL (32.0-36.0); MEAN CORPUSCULAR VOLUME 91.1 fL (79-99); RED BLOOD CELL COUNT(AUTO) 3.49 MIL/uL (4.50-6.20); RED CELL DISTRIBUTION WIDTH 16.1 % (11.0-15.5); WHITE BLOOD COUNT (AUTO) 9.8 K/uL (4.8-10.8)
[2020-09-25 05:33] LABS: PHOSPHORUS 6.8 mg/dL (2.5-4.9); POTASSIUM 5.1 mmol/L (3.5-5.1)
[2020-09-25 06:09] LABS: CREATININE 7.9 mg/dL (0.5-1.5)
[2020-09-25] MEDS: CALCIUM AC 667MG CAP PO SCH ×3 (08:00→16:29)
[2020-09-25 08:14] LABS: HEPATITIS B CORE IGM Negative (Negative); HEPATITIS Bs ANTIGEN SCREEN P Negative (Negative)
[2020-09-25] MEDS: Vitamin B Complex/Vit C/Folic Acid PO SCH (08:18)
[2020-09-25] MEDS: HEPARIN 5,000 UNIT VIAL SQ SCH ×2 (08:33→21:00)
[2020-09-25] MEDS: AMLODIPINE 5 MG TAB PO SCH (08:33)
[2020-09-25] MEDS: FAMOTIDINE 20MG VIAL IV SCH (08:33)
[2020-09-25] MEDS: DiphenhydrAMINE HCL 50 MG/ML VIAL IV PRN ×2 (11:41→23:11)
[2020-09-25] MEDS: ZOSYN 3.375GM+NS 50ML 50 ML IV SCH (18:42)
[2020-09-26] MEDS: HYDROMORPHONE 1 MG INJ IVP PRN ×2 (00:34→08:29)
[2020-09-26] MEDS: ACETAMINOPHEN 325 MG TAB PO PRN ×2 (03:38→12:40)
[2020-09-26 04:00] VITALS: BP 133/74
[2020-09-26] MEDS: ZOSYN 3.375GM+NS 50ML 50 ML IV SCH ×2 (04:20→17:07)
[2020-09-26 07:28] VITALS: BP 145/78
[2020-09-26] MEDS: CALCIUM AC 667MG CAP PO SCH ×3 (08:29→17:06)
[2020-09-26] MEDS: Vitamin B Complex/Vit C/Folic Acid PO SCH (08:29)
[2020-09-26] MEDS: FAMOTIDINE 20MG VIAL IV SCH (08:30)
[2020-09-26] MEDS: AMLODIPINE 5 MG TAB PO SCH (08:30)
[2020-09-26] MEDS: HEPARIN 5,000 UNIT VIAL SQ SCH ×2 (08:34→21:51)
[2020-09-26 08:41] LABS: BASOPHILS % (AUTO) 0.3 % (0.0-5.0); EOSINOPHILS % (AUTO) 1.9 % (0.0-8.0); HEMATOCRIT 33.6 % (42-54); LYMPHOCYTES % (AUTO) 4.7 % (21.0-51.0); MEAN CORPUSCULAR HEMOGLOBIN 29.4 pg (27.0-33.0); MEAN CORPUSCULAR HGB CONC 32.4 g/dL (32.0-36.0); MEAN CORPUSCULAR VOLUME 90.6 fL (79-99); NEUTROPHILS % (AUTO) 77.7 % (40.0-77.0); PLATELET COUNT (AUTO) 294 K/uL (130-400); RED BLOOD CELL COUNT(AUTO) 3.71 MIL/uL (4.50-6.20); RED CELL DISTRIBUTION WIDTH 15.8 % (11.0-15.5); WHITE BLOOD COUNT (AUTO) 10.3 K/uL (4.8-10.8)
[2020-09-26 08:52] LABS: CREATININE 6.6 mg/dL (0.5-1.5); PHOSPHORUS 5.8 mg/dL (2.5-4.9); POTASSIUM 4.6 mmol/L (3.5-5.1)
[2020-09-26 11:07] VITALS: BP 146/82
[2020-09-26] MEDS ORDERED: VANCOMYCIN PROTOCOL PER PHARMACY IV SCH (14:15)
[2020-09-26] MEDS ORDERED: KETOROLAC 30MG VIAL (30MG/ML) IM SCH (14:30)
[2020-09-26] MEDS ORDERED: COMPOUND IV REFRIGERATED 1 EACH IVSOLN MISC PRN (15:15)
[2020-09-26] MEDS ORDERED: VANCOMYCIN 1G 1.5 GM in 0.9% NACL 250ML 250 ML IV ONE ×2 (16:00→21:00)
[2020-09-26 16:15] VITALS: BP 147/82
[2020-09-26 19:55] VITALS: BP 136/67
[2020-09-26 23:25] VITALS: BP 140/75
[2020-09-27 04:04] VITALS: BP 133/69
[2020-09-27 05:36] LABS: BASOPHILS % (AUTO) 0.6 % (0.0-5.0); EOSINOPHILS % (AUTO) 4.4 % (0.0-8.0); HEMATOCRIT 33.7 % (42-54); LYMPHOCYTES % (AUTO) 6.6 % (21.0-51.0); MEAN CORPUSCULAR HEMOGLOBIN 28.1 pg (27.0-33.0); MEAN CORPUSCULAR HGB CONC 30.9 g/dL (32.0-36.0); MEAN CORPUSCULAR VOLUME 91.1 fL (79-99); NEUTROPHILS % (AUTO) 69.9 % (40.0-77.0); PLATELET COUNT (AUTO) 299 K/uL (130-400); RED CELL DISTRIBUTION WIDTH 15.7 % (11.0-15.5); WHITE BLOOD COUNT (AUTO) 8.2 K/uL (4.8-10.8)
[2020-09-27 05:45] LABS: POTASSIUM 4.9 mmol/L (3.5-5.1)
[2020-09-27 05:46] LABS: CREATININE 8.7 mg/dL (0.5-1.5)
[2020-09-27] MEDS: ZOSYN 3.375GM+NS 50ML 50 ML IV SCH ×2 (05:56→16:54)
[2020-09-27] MEDS: ACETAMINOPHEN 325 MG TAB PO PRN ×2 (05:57→09:13)
[2020-09-27] MEDS: HYDROMORPHONE 1 MG INJ IVP PRN ×2 (06:23→15:24)
[2020-09-27 07:42] VITALS: BP 127/67
[2020-09-27] MEDS: FAMOTIDINE 20MG VIAL IV SCH (08:19)
[2020-09-27] MEDS: Vitamin B Complex/Vit C/Folic Acid PO SCH (08:19)
[2020-09-27] MEDS: CALCIUM AC 667MG CAP PO SCH ×3 (08:19→16:56)
[2020-09-27] MEDS: AMLODIPINE 5 MG TAB PO SCH (08:20)
[2020-09-27] MEDS: HEPARIN 5,000 UNIT VIAL SQ SCH ×2 (09:00→21:10)
[2020-09-27 11:00] VITALS: BP 138/72
[2020-09-27] MEDS ORDERED: IOHEXOL-350 75 ML VIAL IV ONE (14:33)
[2020-09-27 16:00] VITALS: BP 134/70
[2020-09-27] MEDS: ONDANSETRON 4MG INJ IV PRN (16:55)
[2020-09-27 19:37] VITALS: BP 147/74
[2020-09-27 23:30] VITALS: BP 149/82
[2020-09-27] MEDS ORDERED: HYDROMORPHONE 1 MG INJ ONE (23:37)
[2020-09-28] MEDS ORDERED: HYDROMORPHONE 1 MG INJ IVP PRN (01:00)
[2020-09-28] MEDS: ONDANSETRON 4MG INJ IV PRN ×2 (03:02→08:39)
[2020-09-28] MEDS: ACETAMINOPHEN 325 MG TAB PO PRN ×2 (03:02→11:27)
[2020-09-28 03:29] VITALS: BP 161/76
[2020-09-28] MEDS: ZOSYN 3.375GM+NS 50ML 50 ML IV SCH (05:19)
[2020-09-28 05:24] LABS: BASOPHILS % (AUTO) 0.6 % (0.0-5.0); EOSINOPHILS % (AUTO) 3.5 % (0.0-8.0); HEMATOCRIT 30.6 % (42-54); LYMPHOCYTES % (AUTO) 5.1 % (21.0-51.0); MEAN CORPUSCULAR HEMOGLOBIN 29.1 pg (27.0-33.0); MEAN CORPUSCULAR HGB CONC 32.7 g/dL (32.0-36.0); MONOCYTES % (AUTO) 17.1 % (3.0-13.0); NEUTROPHILS % (AUTO) 73.4 % (40.0-77.0); PLATELET COUNT (AUTO) 323 K/uL (130-400); RED BLOOD CELL COUNT(AUTO) 3.44 MIL/uL (4.50-6.20); RED CELL DISTRIBUTION WIDTH 15.5 % (11.0-15.5); WHITE BLOOD COUNT (AUTO) 8.6 K/uL (4.8-10.8)
[2020-09-28 05:47] LABS: CREATININE 6.9 mg/dL (0.5-1.5); POTASSIUM 4.6 mmol/L (3.5-5.1)
[2020-09-28 07:35] VITALS: BP 149/77
[2020-09-28] MEDS: AMLODIPINE 5 MG TAB PO SCH (08:39)
[2020-09-28] MEDS: CALCIUM AC 667MG CAP PO SCH ×2 (08:39→11:25)
[2020-09-28] MEDS: FAMOTIDINE 20MG VIAL IV SCH (08:39)
[2020-09-28] MEDS: Vitamin B Complex/Vit C/Folic Acid PO SCH (08:39)
[2020-09-28] MEDS: HEPARIN 5,000 UNIT VIAL SQ SCH (08:55)
[2020-09-28] MEDS ORDERED: VANCOMYCIN 750MG + NS 250 ML IV SCH ×2 (09:00)
[2020-09-28 11:32] VITALS: BP 135/72
[2020-09-28] MEDS ORDERED: VANCOMYCIN 1G/250ML KIT 250 ML IV SCH (15:00)
[2020-09-28 16:00] VITALS: BP 155/79
== END 2020-09-28 17:00 | disposition home or self-care (01) | DRG 602 ==
LOC: EDH 16:18 → EDHIP 19:39 → 3CH 22:45
PROVIDERS: ADMIT Family Medicine; ATTEND Family Medicine
PROC: 5A1D70Z Performance of Urinary Filtration, Intermittent, Less than 6 Hours Per Day (ICD-10-PCS; principal; 2020-09-24)
PROC: 5A1D70Z Performance of Urinary Filtration, Intermittent, Less than 6 Hours Per Day (ICD-10-PCS; 2020-09-25)
PROC: 5A1D70Z Performance of Urinary Filtration, Intermittent, Less than 6 Hours Per Day (ICD-10-PCS; 2020-09-27)
DX: L03.116 Cellulitis of left lower limb (principal); N18.6 End stage renal disease; I12.0 Hypertensive chronic kidney disease with stage 5 chronic kidney disease or end stage renal disease; N39.0 Urinary tract infection, site not specified; J98.11 Atelectasis; E87.70 Fluid overload, unspecified; Z99.2 Dependence on renal dialysis; N50.812 Left testicular pain; E11.22 Type 2 diabetes mellitus with diabetic chronic kidney disease; D64.9 Anemia, unspecified; E11.51 Type 2 diabetes mellitus with diabetic peripheral angiopathy without gangrene; E66.9 Obesity, unspecified; Z20.822 Contact with and (suspected) exposure to COVID-19; E78.5 Hyperlipidemia, unspecified; K37 Unspecified appendicitis; R53.81 Other malaise; M60.9 Myositis, unspecified; K57.30 Diverticulosis of large intestine without perforation or abscess without bleeding; K59.00 Constipation, unspecified; S83.282A Other tear of lateral meniscus, current injury, left knee, initial encounter; Z82.0 Family history of epilepsy and other diseases of the nervous system; Z83.3 Family history of diabetes mellitus; Z90.49 Acquired absence of other specified parts of digestive tract; Z68.26 Body mass index [BMI] 26.0-26.9, adult
CPT/HCPCS: 36415; 71045; 71046; 71250; 73502; 73700; 73701; 73721; 74176; 78582; 80048; 80053; 80074; 81001; 82550; 82948; 83880; 84100; 84484; 85025; 85027; 85378; 85610; 85730; 87426; 90935; 93005; 93925; 93971; 99291; A9540; A9558; G0378; J0696; J1170; J1200; J1644; J1885; J2270; J2405; J2543; J3010; J3370; J3490; J7050; Q0163; Q9967; U0003

== ENCOUNTER 2020-10-19 08:34 | Inpatient (IN) | payer MEDICARE ==
[~2020-10-19] VITALS: Ht 172.7 cm; Wt 82.4 kg
[~2020-10-19 08:34] MED LIST changes: -INSU100I24 SQ; +PHOSLOC PO
[2020-10-19] MEDS ORDERED: MORPHINE SULFATE 2 MG/ML 1ML SYG ONE ×2 (09:39→14:32)
[2020-10-19 09:41] LABS: BASOPHILS % (AUTO) 0.5 % (0.0-5.0); EOSINOPHILS % (AUTO) 2.1 % (0.0-8.0); HEMATOCRIT 34.2 % (42-54); LYMPHOCYTES % (AUTO) 4.9 % (21.0-51.0); MEAN CORPUSCULAR HEMOGLOBIN 28.4 pg (27.0-33.0); MEAN CORPUSCULAR HGB CONC 31.9 g/dL (32.0-36.0); MEAN CORPUSCULAR VOLUME 89.1 fL (79-99); MONOCYTES % (AUTO) 13.1 % (3.0-13.0); NEUTROPHILS % (AUTO) 78.9 % (40.0-77.0); PLATELET COUNT (AUTO) 351 K/uL (130-400); RED BLOOD CELL COUNT(AUTO) 3.84 MIL/uL (4.50-6.20); RED CELL DISTRIBUTION WIDTH 15.8 % (11.0-15.5); WHITE BLOOD COUNT (AUTO) 12.2 K/uL (4.8-10.8)
[2020-10-19 10:12] LABS: CREATININE 6.8 mg/dL (0.5-1.5); POTASSIUM 4.8 mmol/L (3.5-5.1)
[2020-10-19 10:17] LABS: ALBUMIN 3.1 g/dL (3.5-5.0); BILIRUBIN,TOTAL 0.9 mg/dL (0.2-1.0); TOTAL PROTEIN, SERUM 8.7 g/dL (6.0-8.3)
[2020-10-19 12:21] LABS: APPEARANCE,URINE Clear (CLEAR); BILIRUBIN,URINE Negative (NEGATIVE); COLOR,URINE Yellow (YELLOW); GLUCOSE, URINE (UA) 250 mg/dL (NEGATIVE); KETONES,URINE Negative (NEGATIVE); LEUKOCYTE ESTERASE ,URINE Trace (NEGATIVE); NITRATE,URINE Negative (NEGATIVE); OCCULT BLOOD,URINE Negative (NEGATIVE); PH,URINE >=9.0 (5.0-8.0); PROTEIN,URINE >=1000 mg/dL (NEGATIVE); UROBILINOGEN,URINE 0.2 mg/dL (0.2-1.0)
[2020-10-19 12:46] LABS: BACTERIA,URINE Rare /HPF (None Seen); SQUAMOUS EPITHELIAL CELL,UR Rare /HPF (0-2)
[2020-10-19] MEDS ORDERED: KETOROLAC TROMETHAMINE 15MG/ML IV PRN (14:00)
[2020-10-19] MEDS ORDERED: ACETAMINOPHEN 325 MG TAB PO PRN (14:00)
[2020-10-19] MEDS ORDERED: RENAL DOSE IV SCH (16:45)
[2020-10-19] MEDS ORDERED: GUAIFENESIN-CODEINE 5 ML SYRUP PO PRN (17:00)
[2020-10-19] MEDS ORDERED: MORPHINE SULFATE 4 MG/1ML SYG ONE (19:23)
[2020-10-19] MEDS ORDERED: Penicillin PO (20:34)
[2020-10-19] MEDS ORDERED: KETOROLAC TROMETHAMINE 15MG/ML ONE (22:05)
[2020-10-19] MEDS ORDERED: FAMOTIDINE 20MG TAB 20 MG TAB ONE (22:54)
[2020-10-19 23:25] VITALS: BP 133/70
[2020-10-20 04:17] VITALS: BP 114/63
[2020-10-20 04:53] LABS: BASOPHILS % (AUTO) 0.6 % (0.0-5.0); EOSINOPHILS % (AUTO) 1.3 % (0.0-8.0); HEMATOCRIT 30.7 % (42-54); LYMPHOCYTES % (AUTO) 6.7 % (21.0-51.0); MEAN CORPUSCULAR HEMOGLOBIN 28.7 pg (27.0-33.0); MEAN CORPUSCULAR HGB CONC 31.9 g/dL (32.0-36.0); MONOCYTES % (AUTO) 17.2 % (3.0-13.0); NEUTROPHILS % (AUTO) 73.7 % (40.0-77.0); PLATELET COUNT (AUTO) 289 K/uL (130-400); RED BLOOD CELL COUNT(AUTO) 3.41 MIL/uL (4.50-6.20); WHITE BLOOD COUNT (AUTO) 10.1 K/uL (4.8-10.8)
[2020-10-20] MEDS: MORPHINE SULFATE 2 MG/ML 1ML SYG IVP PRN ×2 (05:07→10:31)
[2020-10-20 05:55] LABS: ERYTHROCYTE SEDIMENTATION RATE 85 MM/HR (0-20)
[2020-10-20 06:05] LABS: CREATININE 9.2 mg/dL (0.5-1.5)
[2020-10-20 06:06] LABS: CRP QUANTITATIVE 203.7 mg/L (0.00-9.0)
[2020-10-20 07:00] VITALS: BP 141/84
[2020-10-20] MEDS: ZOSYN 3.375GM+NS 50ML 50 ML IV SCH ×2 (07:04→20:38)
[2020-10-20] MEDS: ENOXAPARIN SODIUM 30 MG/0.3 ML SQ SCH (10:30)
[2020-10-20] MEDS: FAMOTIDINE 20MG TAB 20 MG TAB PO SCH (10:31)
[2020-10-20 11:30] VITALS: BP 131/74
[2020-10-20 12:27] LABS: MAGNESIUM 2.3 mg/dL (1.80-2.40); PHOSPHORUS 7.3 mg/dL (2.5-4.9)
[2020-10-20] MEDS ORDERED: VANCOMYCIN 1GM+NS 250ML 250 ML IV SCH (13:15)
[2020-10-20] MEDS ORDERED: VANCOMYCIN PROTOCOL PER PHARMACY IV PRN (13:15)
[2020-10-20] MEDS ORDERED: COLCHICINE 0.6 MG TABLET PO SCH (13:30)
[2020-10-20 16:17] VITALS: BP 130/69
[2020-10-20] MEDS: HYDROMORPHONE HCL 0.5 MG/0.5 ML ML IVP PRN (16:50)
[2020-10-20 20:02] VITALS: BP 115/56
[2020-10-20] MEDS: ONDANSETRON HCL 4 MG/2 ML VIAL IVP PRN (22:50)
[2020-10-20] MEDS: ACETAMINOPHEN 325 MG TAB PO PRN (22:54)
[2020-10-20 23:38] VITALS: BP 117/64
[2020-10-21] MEDS: HYDROMORPHONE HCL 0.5 MG/0.5 ML ML IVP PRN ×2 (01:14→18:01)
[2020-10-21 04:00] VITALS: BP 117/65
[2020-10-21] MEDS: ONDANSETRON HCL 4 MG/2 ML VIAL IVP PRN (04:26)
[2020-10-21 05:05] LABS: BASOPHILS % (AUTO) 0.5 % (0.0-5.0); EOSINOPHILS % (AUTO) 4.1 % (0.0-8.0); HEMATOCRIT 33.3 % (42-54); LYMPHOCYTES % (AUTO) 6.4 % (21.0-51.0); MEAN CORPUSCULAR HEMOGLOBIN 28.2 pg (27.0-33.0); MEAN CORPUSCULAR HGB CONC 30.6 g/dL (32.0-36.0); MONOCYTES % (AUTO) 12.1 % (3.0-13.0); NEUTROPHILS % (AUTO) 76.3 % (40.0-77.0); PLATELET COUNT (AUTO) 258 K/uL (130-400); RED BLOOD CELL COUNT(AUTO) 3.62 MIL/uL (4.50-6.20); RED CELL DISTRIBUTION WIDTH 15.8 % (11.0-15.5); WHITE BLOOD COUNT (AUTO) 10.5 K/uL (4.8-10.8)
[2020-10-21 05:33] LABS: ALBUMIN 2.6 g/dL (3.5-5.0); CREATININE 7.3 mg/dL (0.5-1.5); POTASSIUM 4.5 mmol/L (3.5-5.1); TOTAL PROTEIN, SERUM 8.6 g/dL (6.0-8.3)
[2020-10-21 05:43] LABS: CRP QUANTITATIVE 340.8 mg/L (0.00-9.0)
[2020-10-21] MEDS: ZOSYN 3.375GM+NS 50ML 50 ML IV SCH ×2 (06:28→17:56)
[2020-10-21 07:00] VITALS: BP 115/78
[2020-10-21] MEDS: METHYLPREDNISOLONE SOD SUCC 40MG/ML 1ML IVP SCH (10:08)
[2020-10-21] MEDS: FAMOTIDINE 20MG TAB 20 MG TAB PO SCH (10:08)
[2020-10-21] MEDS: ENOXAPARIN SODIUM 30 MG/0.3 ML SQ SCH (10:09)
[2020-10-21 11:30] VITALS: BP 129/68
[2020-10-21 13:09] LABS: HEPATITIS A ANTIBODY IGM Negative (Negative); HEPATITIS B CORE IGM Negative (Negative); HEPATITIS Bs ANTIGEN SCREEN P Negative (Negative)
[2020-10-21 15:24] LABS: SPECIMENTYPE,BODY FLUID SYNOVIAL
[2020-10-21 16:28] VITALS: BP 139/64
[2020-10-21 20:05] VITALS: BP 139/71
[2020-10-21] MEDS ORDERED: LACTULOSE 20 GM/30 ML UDCUP PO PRN (21:15)
[2020-10-21] MEDS: ACETAMINOPHEN 325 MG TAB PO PRN (22:00)
[2020-10-21 23:58] VITALS: BP 141/76
[2020-10-22] MEDS: HYDROMORPHONE HCL 0.5 MG/0.5 ML ML IVP PRN ×3 (00:15→21:05)
[2020-10-22 03:38] VITALS: BP 147/76
[2020-10-22 06:24] LABS: BASOPHILS % (AUTO) 0.2 % (0.0-5.0); HEMATOCRIT 32.3 % (42-54); LYMPHOCYTES % (AUTO) 4.3 % (21.0-51.0); MEAN CORPUSCULAR HEMOGLOBIN 27.5 pg (27.0-33.0); MEAN CORPUSCULAR HGB CONC 30.3 g/dL (32.0-36.0); MEAN CORPUSCULAR VOLUME 90.7 fL (79-99); MONOCYTES % (AUTO) 9.8 % (3.0-13.0); NEUTROPHILS % (AUTO) 85.1 % (40.0-77.0); PLATELET COUNT (AUTO) 204 K/uL (130-400); RED BLOOD CELL COUNT(AUTO) 3.56 MIL/uL (4.50-6.20); RED CELL DISTRIBUTION WIDTH 15.4 % (11.0-15.5); WHITE BLOOD COUNT (AUTO) 10.5 K/uL (4.8-10.8)
[2020-10-22 06:43] LABS: ALBUMIN 2.6 g/dL (3.5-5.0); BILIRUBIN,TOTAL 0.8 mg/dL (0.2-1.0); POTASSIUM 5.5 mmol/L (3.5-5.1); TOTAL PROTEIN, SERUM 8.4 g/dL (6.0-8.3)
[2020-10-22] MEDS: ZOSYN 3.375GM+NS 50ML 50 ML IV SCH ×2 (06:45→21:05)
[2020-10-22 06:49] LABS: CREATININE 9.6 mg/dL (0.5-1.5)
[2020-10-22 06:52] LABS: CRP QUANTITATIVE 254.4 mg/L (0.00-9.0)
[2020-10-22 08:50] VITALS: BP 146/78
[2020-10-22] MEDS ORDERED: COLCHICINE 0.6 MG TABLET PO SCH (09:00)
[2020-10-22] MEDS: FAMOTIDINE 20MG TAB 20 MG TAB PO SCH (10:34)
[2020-10-22] MEDS: METHYLPREDNISOLONE SOD SUCC 40MG/ML 1ML IVP SCH (10:34)
[2020-10-22] MEDS: ENOXAPARIN SODIUM 30 MG/0.3 ML SQ SCH (10:35)
[2020-10-22 12:00] VITALS: BP 136/74
[2020-10-22 16:00] VITALS: BP 156/75
[2020-10-22 20:00] VITALS: BP 160/77
[2020-10-23] VITALS: BP 117/78
[2020-10-23 04:00] VITALS: BP 142/73
[2020-10-23 05:24] LABS: BASOPHILS % (AUTO) 0.1 % (0.0-5.0); HEMATOCRIT 31.5 % (42-54); LYMPHOCYTES % (AUTO) 4.4 % (21.0-51.0); MEAN CORPUSCULAR HEMOGLOBIN 28.2 pg (27.0-33.0); MEAN CORPUSCULAR HGB CONC 31.4 g/dL (32.0-36.0); MEAN CORPUSCULAR VOLUME 89.7 fL (79-99); MONOCYTES % (AUTO) 8.2 % (3.0-13.0); NEUTROPHILS % (AUTO) 86.7 % (40.0-77.0); PLATELET COUNT (AUTO) 207 K/uL (130-400); RED BLOOD CELL COUNT(AUTO) 3.51 MIL/uL (4.50-6.20); RED CELL DISTRIBUTION WIDTH 15.2 % (11.0-15.5); WHITE BLOOD COUNT (AUTO) 10.7 K/uL (4.8-10.8)
[2020-10-23 05:49] LABS: ALBUMIN 2.5 g/dL (3.5-5.0); BILIRUBIN,TOTAL 0.6 mg/dL (0.2-1.0); CRP QUANTITATIVE 169.4 mg/L (0.00-9.0); PHOSPHORUS 9.5 mg/dL (2.5-4.9); TOTAL PROTEIN, SERUM 8.1 g/dL (6.0-8.3)
[2020-10-23 05:57] LABS: POTASSIUM 7.1 mmol/L (3.5-5.1)
[2020-10-23] MEDS: ZOSYN 3.375GM+NS 50ML 50 ML IV SCH (07:00)
[2020-10-23 09:07] VITALS: BP 160/81
[2020-10-23 11:24] VITALS: BP 162/86
[2020-10-23] MEDS ORDERED: HYDROXYZINE HCL 10 MG TABLET PO PRN (11:45)
[2020-10-23] MEDS: METHYLPREDNISOLONE SOD SUCC 40MG/ML 1ML IVP SCH (15:00)
[2020-10-23] MEDS: FAMOTIDINE 20MG TAB 20 MG TAB PO SCH (15:00)
[2020-10-23] MEDS: ENOXAPARIN SODIUM 30 MG/0.3 ML SQ SCH (15:01)
[2020-10-23 16:36] VITALS: BP 166/87
[2020-10-23] MEDS: ACETAMINOPHEN 325 MG TAB PO PRN (16:42)
== END 2020-10-23 18:45 | DRG 555 ==
LOC: EDH 08:34 → OBSVTOIN 13:50 → EDHIP 13:50 → 3DH 23:05
PROVIDERS: ADMIT Hospitalist; ATTEND Hospitalist
PROC: 0S9D3ZZ Drainage of Left Knee Joint, Percutaneous Approach (ICD-10-PCS; principal; 2020-10-20)
PROC: 5A1D70Z Performance of Urinary Filtration, Intermittent, Less than 6 Hours Per Day (ICD-10-PCS; 2020-10-20)
PROC: 5A1D70Z Performance of Urinary Filtration, Intermittent, Less than 6 Hours Per Day (ICD-10-PCS; 2020-10-23)
DX: M60.9 Myositis, unspecified (principal); N18.6 End stage renal disease; N39.0 Urinary tract infection, site not specified; I12.0 Hypertensive chronic kidney disease with stage 5 chronic kidney disease or end stage renal disease; L03.116 Cellulitis of left lower limb; M25.462 Effusion, left knee; D64.9 Anemia, unspecified; E11.22 Type 2 diabetes mellitus with diabetic chronic kidney disease; G43.909 Migraine, unspecified, not intractable, without status migrainosus; E87.5 Hyperkalemia; E78.5 Hyperlipidemia, unspecified; B96.5 Pseudomonas (aeruginosa) (mallei) (pseudomallei) as the cause of diseases classified elsewhere; R53.81 Other malaise; R59.0 Localized enlarged lymph nodes; R91.8 Other nonspecific abnormal finding of lung field; R26.2 Difficulty in walking, not elsewhere classified; Z99.2 Dependence on renal dialysis; Z82.0 Family history of epilepsy and other diseases of the nervous system; Z83.3 Family history of diabetes mellitus; Z90.49 Acquired absence of other specified parts of digestive tract; Z86.16 Personal history of COVID-19; Z79.899 Other long term (current) drug therapy
CPT/HCPCS: 36415; 71045; 73552; 73700; 73721; 76882; 80048; 80053; 80074; 81001; 83605; 83735; 84100; 84132; 84145; 84550; 85025; 85651; 86038; 86140; 87070; 87076; 87077; 87088; 87186; 89051; 89060; 90935; 93971; G0378; J1170; J1650; J1885; J2270; J2405; J2543; J2920; J3370

== ENCOUNTER 2020-12-03 12:15 | Emergency (ER) | payer MEDICARE ==
[~2020-12-03 12:15] MED LIST changes: -PHOSLOC PO; +Penicillin PO
[2020-12-03 12:40] LABS: BASOPHILS % (AUTO) 0.8 % (0.0-5.0); EOSINOPHILS % (AUTO) 2.6 % (0.0-8.0); LYMPHOCYTES % (AUTO) 5.5 % (21.0-51.0); MEAN CORPUSCULAR HEMOGLOBIN 29.3 pg (27.0-33.0); MEAN CORPUSCULAR HGB CONC 32.3 g/dL (32.0-36.0); MEAN CORPUSCULAR VOLUME 90.9 fL (79-99); MONOCYTES % (AUTO) 11.3 % (3.0-13.0); NEUTROPHILS % (AUTO) 77.7 % (40.0-77.0); PLATELET COUNT (AUTO) 305 K/uL (130-400); RED BLOOD CELL COUNT(AUTO) 3.41 MIL/uL (4.50-6.20); RED CELL DISTRIBUTION WIDTH 16.7 % (11.0-15.5)
[2020-12-03 13:01] LABS: ALBUMIN 2.7 g/dL (3.5-5.0); BILIRUBIN,TOTAL 0.5 mg/dL (0.2-1.0); POTASSIUM 4.9 mmol/L (3.5-5.1); TOTAL PROTEIN, SERUM 7.5 g/dL (6.0-8.3)
[2020-12-03 13:09] LABS: INR 1.15 (0.85-1.15); PROTHROMBIN TIME 12.4 SEC (9.6-11.6)
[2020-12-03 13:19] LABS: B-TYPE NATRIURETIC PEPTIDE 1690 pg/mL (0-100)
== END 2020-12-03 17:49 | disposition home or self-care (01) ==
LOC: EDH 12:15
DX: E87.70 Fluid overload, unspecified (principal); R06.00 Dyspnea, unspecified; I12.0 Hypertensive chronic kidney disease with stage 5 chronic kidney disease or end stage renal disease; N18.6 End stage renal disease; E11.22 Type 2 diabetes mellitus with diabetic chronic kidney disease; Z20.822 Contact with and (suspected) exposure to COVID-19; Z99.2 Dependence on renal dialysis; Z88.8 Allergy status to other drugs, medicaments and biological substances; Z90.49 Acquired absence of other specified parts of digestive tract
CPT/HCPCS: 36415; 71045; 80053; 82550; 82948; 83605 ×2; 83690; 83880; 84484 ×2; 85025; 85610; 85730; 87426; 93005 ×2; 99285; U0003

== ENCOUNTER → 2022-01-17 | Outpatient (CLI) | payer MEDICARE ==
[~2022-01-17] MED LIST changes: +ALBUMIN (HUMAN) 25% 200 ML IV SCH; +LIDOCAINE HCL 1% MDV 50ML VIAL ONE
[2022-01-17 10:37] LABS: BASOPHILS % (AUTO) 0.8 % (0.0-5.0); EOSINOPHILS % (AUTO) 3.3 % (0.0-8.0); HEMATOCRIT 37.9 % (42-54); MEAN CORPUSCULAR HEMOGLOBIN 29.8 pg (27.0-33.0); MEAN CORPUSCULAR HGB CONC 31.4 g/dL (32.0-36.0); MEAN CORPUSCULAR VOLUME 94.8 fL (79-99); MONOCYTES % (AUTO) 12.1 % (3.0-13.0); NEUTROPHILS % (AUTO) 74.3 % (40.0-77.0); PLATELET COUNT (AUTO) 241 K/uL (130-400); RED CELL DISTRIBUTION WIDTH 14.6 % (11.0-15.5); WHITE BLOOD COUNT (AUTO) 7.4 K/uL (4.8-10.8)
[2022-01-17 10:44] LABS: INR 0.96 (0.85-1.15); PROTHROMBIN TIME 10.5 SEC (9.6-11.6)
[2022-01-17 11:31] LABS: ALBUMIN 3.4 g/dL (3.5-5.0); BILIRUBIN,TOTAL 0.4 mg/dL (0.2-1.0); CREATININE 7.2 mg/dL (0.5-1.5); POTASSIUM 4.5 mmol/L (3.5-5.1); TOTAL PROTEIN, SERUM 8.4 g/dL (6.0-8.3)
[2022-01-17 13:34] LABS: APPEARANCE BODY FLUID CLEAR (CLEAR); COLOR,BODY FLUID YELLOW (LT YELLOW); SPECIMENTYPE,BODY FLUID ASCITES; TOTAL VOLUME,BODY FLUID 8500 mL
[2022-01-17 13:35] LABS: BODY FLUID RBC 8 /cu. mm.; BODY FLUID WBC 199 /cu. mm.
[2022-01-17 13:50] LABS: BF LYMPHOCYTE 24 %; BF MESOTHELIAL 58 %; BF MONOCYTE 1 %
[2022-01-17 14:24] LABS: ALBUMIN,BODY FLUID 2.7 g/dL
== END | disposition home or self-care (01) ==
LOC: RAH 08:55
PROVIDERS: ATTEND Internal Medicine Gastroenterology
DX: R18.8 Other ascites (principal); I12.0 Hypertensive chronic kidney disease with stage 5 chronic kidney disease or end stage renal disease; E11.22 Type 2 diabetes mellitus with diabetic chronic kidney disease; N18.6 End stage renal disease; G43.909 Migraine, unspecified, not intractable, without status migrainosus; E78.5 Hyperlipidemia, unspecified; Z98.890 Other specified postprocedural states; Z90.49 Acquired absence of other specified parts of digestive tract; Z82.3 Family history of stroke; Z82.0 Family history of epilepsy and other diseases of the nervous system; Z79.01 Long term (current) use of anticoagulants; Z79.899 Other long term (current) drug therapy
CPT/HCPCS: 36415; 49083; 80053; 82042; 84157; 85025; 85610; 87071; 87076; 87205; 89051; C1729; J3490; P9046; 96365

== ENCOUNTER 2022-02-18 12:14 | Emergency (ER) | payer MEDICARE ==
[~2022-02-18] VITALS: Ht 170.2 cm; Wt 79.4 kg
[~2022-02-18 12:14] MED LIST changes: -ALBUMIN (HUMAN) 25% 200 ML IV SCH; -LIDOCAINE HCL 1% MDV 50ML VIAL ONE
[2022-02-18 12:36] LABS: BASOPHILS % (AUTO) 0.4 % (0.0-5.0); EOSINOPHILS % (AUTO) 1.8 % (0.0-8.0); HEMATOCRIT 38.8 % (42-54); LYMPHOCYTES % (AUTO) 5.1 % (21.0-51.0); MEAN CORPUSCULAR HGB CONC 32.2 g/dL (32.0-36.0); MONOCYTES % (AUTO) 9.1 % (3.0-13.0); NEUTROPHILS % (AUTO) 83.4 % (40.0-77.0); PLATELET COUNT (AUTO) 326 K/uL (130-400); RED BLOOD CELL COUNT(AUTO) 4.17 MIL/uL (4.50-6.20); RED CELL DISTRIBUTION WIDTH 14.3 % (11.0-15.5); WHITE BLOOD COUNT (AUTO) 9.8 K/uL (4.8-10.8)
[2022-02-18 12:51] LABS: POTASSIUM 5.3 mmol/L (3.5-5.1); TOTAL PROTEIN, SERUM 7.8 g/dL (6.0-8.3)
[2022-02-18 12:55] LABS: CREATININE 10.9 mg/dL (0.5-1.5)
[2022-02-18 13:03] LABS: INR 0.96 (0.85-1.15); PROTHROMBIN TIME 10.5 SEC (9.6-11.6)
[2022-02-18 13:04] LABS: PARTIAL THROMBOPLASTIN TIME 33.7 SEC (26.3-35.5)
[2022-02-18] MEDS ORDERED: ALBUMIN (HUMAN) 25% 200 ML IV ONE (13:56)
[2022-02-18 14:27] VITALS: BP 174/82
== END 2022-02-18 14:42 | disposition home or self-care (01) ==
LOC: EDH 12:14
DX: R18.8 Other ascites (principal); I12.0 Hypertensive chronic kidney disease with stage 5 chronic kidney disease or end stage renal disease; N18.6 End stage renal disease
CPT/HCPCS: 49083; 99285; 96365; 80053; 83690; 85025; 85610; 85730; 36415; P9046; C1729

== ENCOUNTER 2022-03-14 13:59 | Emergency (ER) | payer MEDICARE ==
[~2022-03-14] VITALS: Ht 172.7 cm; Wt 81.6 kg
[2022-03-14 14:41] LABS: BASOPHILS % (AUTO) 0.7 % (0.0-5.0); EOSINOPHILS % (AUTO) 3.4 % (0.0-8.0); HEMATOCRIT 34.6 % (42-54); LYMPHOCYTES % (AUTO) 8.7 % (21.0-51.0); MEAN CORPUSCULAR HGB CONC 32.7 g/dL (32.0-36.0); MEAN CORPUSCULAR VOLUME 91.8 fL (79-99); NEUTROPHILS % (AUTO) 75.9 % (40.0-77.0); PLATELET COUNT (AUTO) 234 K/uL (130-400); RED BLOOD CELL COUNT(AUTO) 3.77 MIL/uL (4.50-6.20); RED CELL DISTRIBUTION WIDTH 14.5 % (11.0-15.5); WHITE BLOOD COUNT (AUTO) 7.4 K/uL (4.8-10.8)
[2022-03-14 14:54] LABS: POTASSIUM 4.9 mmol/L (3.5-5.1); TOTAL PROTEIN, SERUM 7.5 g/dL (6.0-8.3)
[2022-03-14 15:00] LABS: APPEARANCE,URINE CLEAR (CLEAR); BILIRUBIN,URINE NEGATIVE (NEGATIVE); COLOR,URINE YELLOW (YELLOW); GLUCOSE, URINE (UA) NEGATIVE (NEGATIVE); KETONES,URINE NEGATIVE (NEGATIVE); LEUKOCYTE ESTERASE ,URINE NEGATIVE (NEGATIVE); NITRATE,URINE NEGATIVE (NEGATIVE); OCCULT BLOOD,URINE TRACE-INTACT (NEGATIVE); PH,URINE 8.5 (5.0-8.0); PROTEIN,URINE 100 mg/dL (NEGATIVE); UROBILINOGEN,URINE 0.2 mg/dL (0.2-1.0)
[2022-03-14] MEDS ORDERED: ALBUMIN (HUMAN) 25% 200 ML IV ONE (15:00)
[2022-03-14 15:07] LABS: CREATININE 9.2 mg/dL (0.5-1.5)
[2022-03-14 15:12] LABS: BACTERIA,URINE Rare /HPF (None Seen); SQUAMOUS EPITHELIAL CELL,UR Rare /HPF (0-2); WBC,URINE 0-1 /HPF (0-1)
[2022-03-14 16:35] VITALS: BP 167/71
[2022-03-14 17:05] LABS: SPECIMENTYPE,BODY FLUID ASCITES
[2022-03-14 17:06] LABS: APPEARANCE BODY FLUID SLIGHTLY CLOUDY (CLEAR); BODY FLUID RBC 339 /cu. mm.; BODY FLUID WBC 115 /cu. mm.; COLOR,BODY FLUID YELLOW (LT YELLOW); TOTAL VOLUME,BODY FLUID 6700 mL
[2022-03-14 17:31] LABS: BF LYMPHOCYTE 37 %; BF MESOTHELIAL 28 %; BF MONOCYTE 1 %
== END 2022-03-14 16:36 | disposition home or self-care (01) ==
LOC: EDH 13:59
DX: R18.8 Other ascites (principal); I12.0 Hypertensive chronic kidney disease with stage 5 chronic kidney disease or end stage renal disease; N18.6 End stage renal disease; Z99.2 Dependence on renal dialysis
CPT/HCPCS: 49083; 99285; 96365; 80053; 85025; 89051; 87071; 87205; 81001; 36415; 93005; P9046; C1729

== ENCOUNTER 2022-08-02 20:28 | Emergency (ER) | payer MEDICARE ==
[~2022-08-02] VITALS: Ht 172.7 cm; Wt 79.4 kg
[~2022-08-02 20:28] MED LIST changes: -AMLO-257 PO; +AMLO5TAB4 PO; +CHOL2400 MC; +Calcium Ac 667MG Cap PO; +METO5TAB2 PO; +PANT40TA PO; -Penicillin PO; +SUCR1TAB PO
[2022-08-02 20:44] VITALS: BP 156/83
== END 2022-08-02 23:19 | disposition home or self-care (01) ==
LOC: EDH 20:28
DX: R18.8 Other ascites (principal); I12.9 Hypertensive chronic kidney disease with stage 1 through stage 4 chronic kidney disease, or unspecified chronic kidney disease; N18.9 Chronic kidney disease, unspecified; Z99.2 Dependence on renal dialysis; Z79.899 Other long term (current) drug therapy; Z90.49 Acquired absence of other specified parts of digestive tract

== ENCOUNTER 2022-08-04 06:55 | Emergency (ER) | payer MEDICARE ==
[~2022-08-04] VITALS: Ht 172.7 cm; Wt 80.3 kg
[2022-08-04 07:47] LABS: BASOPHILS % (AUTO) 0.5 % (0.0-5.0); EOSINOPHILS % (AUTO) 2.7 % (0.0-8.0); HEMATOCRIT 32.3 % (42-54); LYMPHOCYTES % (AUTO) 4.4 % (21.0-51.0); MEAN CORPUSCULAR HEMOGLOBIN 31.4 pg (27.0-33.0); MEAN CORPUSCULAR HGB CONC 32.2 g/dL (32.0-36.0); MEAN CORPUSCULAR VOLUME 97.6 fL (79-99); MONOCYTES % (AUTO) 15.1 % (3.0-13.0); PLATELET COUNT (AUTO) 186 K/uL (130-400); RED BLOOD CELL COUNT(AUTO) 3.31 MIL/uL (4.50-6.20); RED CELL DISTRIBUTION WIDTH 15.1 % (11.0-15.5); WHITE BLOOD COUNT (AUTO) 6.3 K/uL (4.8-10.8)
[2022-08-04 08:03] LABS: INR 1.04 (0.85-1.15); PROTHROMBIN TIME 11.3 SEC (9.6-11.6)
[2022-08-04 08:04] LABS: PARTIAL THROMBOPLASTIN TIME 35.3 SEC (26.3-35.5)
[2022-08-04 08:37] LABS: ALBUMIN 3.4 g/dL (3.5-5.0); MAGNESIUM 2.4 mg/dL (1.80-2.40); POTASSIUM 5.5 mmol/L (3.5-5.1); TOTAL PROTEIN, SERUM 7.6 g/dL (6.0-8.3)
[2022-08-04 08:40] LABS: CREATININE 10.2 mg/dL (0.5-1.5)
[2022-08-04 08:46] LABS: APPEARANCE,URINE CLEAR (CLEAR); BILIRUBIN,URINE NEGATIVE (NEGATIVE); COLOR,URINE LIGHT-YELLOW (YELLOW); GLUCOSE, URINE (UA) NEGATIVE (NEGATIVE); KETONES,URINE NEGATIVE (NEGATIVE); LEUKOCYTE ESTERASE ,URINE NEGATIVE Leu/uL (NEGATIVE); NITRATE,URINE NEGATIVE (NEGATIVE); PH,URINE 8.5 (5.0-8.0); PROTEIN,URINE 300 mg/dL (NEGATIVE); UROBILINOGEN,URINE 0.2 mg/dL (0.2-1.0)
[2022-08-04 08:51] LABS: BACTERIA,URINE RARE /HPF (None Seen); SQUAMOUS EPITHELIAL CELL,UR RARE /HPF (0-2); WBC,URINE 0-1 /HPF (0-1)
[2022-08-04] MEDS ORDERED: LIDOCAINE HCL 1% 20 ML VIAL ONE (09:14)
[2022-08-04] MEDS ORDERED: SODIUM BICARB 50MEQ 50ML VIAL 50 ML ONE (09:14)
[2022-08-04] MEDS ORDERED: ALBUMIN (HUMAN) 25% 200 ML IV ONE (09:14)
[2022-08-04 10:12] VITALS: BP 155/64
== END 2022-08-04 11:00 | disposition home or self-care (01) ==
LOC: EDH 06:55
DX: R18.8 Other ascites (principal); I12.0 Hypertensive chronic kidney disease with stage 5 chronic kidney disease or end stage renal disease; N18.6 End stage renal disease; E11.22 Type 2 diabetes mellitus with diabetic chronic kidney disease; Z90.49 Acquired absence of other specified parts of digestive tract; Z79.899 Other long term (current) drug therapy; Z98.890 Other specified postprocedural states
CPT/HCPCS: 99285; 83735; 80053; 85025; 85610; 85730; 81001; 36415; 49083; 96365; J3490; P9046; C1729

== ENCOUNTER 2022-09-15 20:36 | Emergency (ER) | payer MEDICARE ==
[~2022-09-15] VITALS: Ht 172.7 cm; Wt 79.8 kg
[2022-09-15 21:37] VITALS: BP 166/71
== END 2022-09-15 22:00 | disposition left against medical advice (07) ==
LOC: EDH 20:36
DX: R18.8 Other ascites (principal); E11.9 Type 2 diabetes mellitus without complications; I10 Essential (primary) hypertension; Z90.49 Acquired absence of other specified parts of digestive tract; Z79.899 Other long term (current) drug therapy
CPT/HCPCS: 99281

== ENCOUNTER 2022-09-16 06:38 | Emergency (ER) | payer MEDICARE ==
[~2022-09-16] VITALS: Ht 172.7 cm; Wt 79.8 kg
[2022-09-16 06:41] VITALS: BP 192/87
[2022-09-16 07:57] LABS: BASOPHILS % (AUTO) 0.7 % (0.0-5.0); EOSINOPHILS % (AUTO) 3.2 % (0.0-8.0); LYMPHOCYTES % (AUTO) 7.9 % (21.0-51.0); MEAN CORPUSCULAR HEMOGLOBIN 30.9 pg (27.0-33.0); MEAN CORPUSCULAR HGB CONC 32.2 g/dL (32.0-36.0); MEAN CORPUSCULAR VOLUME 95.7 fL (79-99); MONOCYTES % (AUTO) 9.6 % (3.0-13.0); NEUTROPHILS % (AUTO) 78.2 % (40.0-77.0); PLATELET COUNT (AUTO) 206 K/uL (130-400); RED BLOOD CELL COUNT(AUTO) 3.76 MIL/uL (4.50-6.20); RED CELL DISTRIBUTION WIDTH 15.2 % (11.0-15.5); WHITE BLOOD COUNT (AUTO) 6.9 K/uL (4.8-10.8)
[2022-09-16 08:10] LABS: INR 1.04 (0.85-1.15); PROTHROMBIN TIME 11.3 SEC (9.6-11.6)
[2022-09-16 08:11] LABS: ALBUMIN 3.7 g/dL (3.5-5.0); POTASSIUM 4.9 mmol/L (3.5-5.1)
[2022-09-16 08:13] LABS: CREATININE 11.2 mg/dL (0.5-1.5)
[2022-09-16 08:15] LABS: TOTAL PROTEIN, SERUM 7.8 g/dL (6.0-8.3)
[2022-09-16] MEDS ORDERED: SODIUM BICARB 50MEQ 50ML VIAL 50 ML ONE (11:36)
[2022-09-16] MEDS ORDERED: LIDOCAINE HCL 1% 20 ML VIAL ONE (11:36)
[2022-09-16] MEDS ORDERED: ALBUMIN (HUMAN) 25% 200 ML IV ONE (11:37)
== END 2022-09-16 12:42 | disposition home or self-care (01) ==
LOC: EDH 06:38
DX: R14.0 Abdominal distension (gaseous) (principal); E11.22 Type 2 diabetes mellitus with diabetic chronic kidney disease; I12.0 Hypertensive chronic kidney disease with stage 5 chronic kidney disease or end stage renal disease; N18.6 End stage renal disease; Z99.2 Dependence on renal dialysis; Z79.899 Other long term (current) drug therapy
CPT/HCPCS: 49083; 99285; 96365; 80053; 85025; 85610; 36415; P9046; J3490; C1729

== ENCOUNTER 2023-05-10 17:53 | Emergency (ER) | payer MEDICARE ==
[~2023-05-10] VITALS: Ht 172.7 cm; Wt 74.8 kg
[2023-05-10 18:28] LABS: BASOPHILS # (AUTO) 0.05 K/uL (0.00-0.20); BASOPHILS % (AUTO) 0.7 % (0.0-5.0); EOSINOPHILS # (AUTO) 0.09 K/uL (0.00-0.70); EOSINOPHILS % (AUTO) 1.3 % (0.0-8.0); IMMATURE GRANULOCYTE ABSOLUTE 0.02 K/uL (0-1); LYMPHOCYTES # (AUTO) 0.6 K/uL (1.0-4.8); LYMPHOCYTES % (AUTO) 8.2 % (21.0-51.0); MEAN CORPUSCULAR HEMOGLOBIN 29.9 pg (27.0-33.0); MEAN CORPUSCULAR HGB CONC 32.6 g/dL (32.0-36.0); MEAN CORPUSCULAR VOLUME 91.6 fL (79-99); MONOCYTES # (AUTO) 0.7 K/uL (0.1-1.0); MONOCYTES % (AUTO) 10.6 % (3.0-13.0); NEUTROPHILS # (AUTO) 5.5 K/uL (1.8-7.7); NEUTROPHILS % (AUTO) 78.9 % (40.0-77.0); PLATELET COUNT (AUTO) 238 K/uL (130-400); RED BLOOD CELL COUNT(AUTO) 3.71 MIL/uL (4.50-6.20); RED CELL DISTRIBUTION WIDTH 14.1 % (11.0-15.5)
[2023-05-10 18:48] LABS: BILIRUBIN,TOTAL 0.6 mg/dL (0.2-1.0); POTASSIUM 4.2 mmol/L (3.5-5.1); TOTAL PROTEIN, SERUM 8.9 g/dL (6.0-8.3)
[2023-05-10 18:51] LABS: CREATININE 8.3 mg/dL (0.5-1.5)
[2023-05-10] MEDS ORDERED: HALOPERIDOL INJ 5 MG/ML VIAL IV SCH ×2 (21:00→22:00)
[2023-05-10] MEDS ORDERED: MAG/ALUM/SIMETH 30 ML UDCUP PO ONE (21:00)
[2023-05-10] MEDS ORDERED: LIDOCAINE HCL 2% VISCOUS 15 ML UDCUP PO ONE (21:00)
[2023-05-10] MEDS ORDERED: ONDA-104 PO (23:25)
[2023-05-10] MEDS ORDERED: FAMO-136 PO (23:25)
[2023-05-11 00:04] VITALS: BP 118/60; PULSE 78; RESP 18; O2SAT 98
== END 2023-05-11 00:10 | disposition home or self-care (01) ==
LOC: EDH 17:53
DX: E11.43 Type 2 diabetes mellitus with diabetic autonomic (poly)neuropathy (principal); K31.84 Gastroparesis; I12.9 Hypertensive chronic kidney disease with stage 1 through stage 4 chronic kidney disease, or unspecified chronic kidney disease; E11.22 Type 2 diabetes mellitus with diabetic chronic kidney disease; N18.9 Chronic kidney disease, unspecified; Z79.899 Other long term (current) drug therapy; Z99.2 Dependence on renal dialysis
CPT/HCPCS: 99284; 96374; 82150; 84484; 80053; 83690; 85025; 36415; 96376; J1630 ×2

== ENCOUNTER 2024-06-22 07:03 | Day surgery (SDC) | payer MEDICARE ==
[~2024-06-22] VITALS: Ht 170.2 cm; Wt 81.6 kg
[2024-06-22] VITALS (10 sets, daily range): BP systolic 131–172; BP diastolic 50–80; PULSE 60–67; RESP 14–21; TEMP 97–98.2
[~2024-06-22 07:03] MED LIST changes: +0.9%NACL 1000ML 0 ML IV ONE; +AMLO-258 PO; -AMLO5TAB4 PO; +BACL10TA PO; -CHOL2400 MC; +GABA-529 PO; +LOSA100T59 PO; -METO5TAB2 PO; +METO5TAB87 PO; -PANT40TA PO; +SEVE0.8P3 PO; -SUCR1TAB PO
[2024-06-22] MEDS: 0.9% NACL 500ML IV.SOLN 500 ML IV ONE (07:47)
[2024-06-22] MEDS ORDERED: proPOFol 10 MG/ML 20ML VIAL IV ONE (08:53)
[2024-06-22] MEDS ORDERED: METO5 PO (09:48)
== END 2024-06-22 10:05 | disposition home or self-care (01) ==
LOC: DAH 07:03 → SUH 07:03
PROVIDERS: ATTEND Internal Medicine Gastroenterology
DX: R14.0 Abdominal distension (gaseous) (principal); K29.50 Unspecified chronic gastritis without bleeding; K31.89 Other diseases of stomach and duodenum; R11.0 Nausea; K31.84 Gastroparesis; D12.3 Benign neoplasm of transverse colon; K44.9 Diaphragmatic hernia without obstruction or gangrene; K21.9 Gastro-esophageal reflux disease without esophagitis; I10 Essential (primary) hypertension; Z88.8 Allergy status to other drugs, medicaments and biological substances; Z90.49 Acquired absence of other specified parts of digestive tract; Z79.899 Other long term (current) drug therapy
CPT/HCPCS: 43239; 82948 ×2; J7040; J2704; A4615; A4215 ×2; A4223; A4222; A4221; A4663; J7030; A4606; J3490